=== PATIENT | female | born 1990 | race Caucasian/White ===

== ENCOUNTER → 2016-09-03 | Outpatient (REF) | payer OTHER | LOC: M SFHCCAPE 11:15 | PROVIDERS: ATTEND Physician Assistant | DX: J06.9 Acute upper respiratory infection, unspecified (principal) ==

== ENCOUNTER → 2016-10-23 | Outpatient (REF) | payer BC, OTHER ==
[2016-10-23 19:13] LABS: BASO % 0.7 % (0.0-1.0); EOS # 0.1 K/mm3 (0.0-0.50); EOS % 1.8 % (0.0-3.0); LARGE UNSTAINED CELL # 0.1 K/mm3 (0.0-0.4); LYMPH # 1.6 K/mm3 (1.5-6.5); LYMPH % 22.2 % (24.0-44.0); MEAN CORPUSCULAR HEMOGLOBIN 30.2 pg (27.0-33.0); MEAN CORPUSCULAR HGB CONC 32.6 g/dl (32.0-36.5); MEAN CORPUSCULAR VOLUME 92.5 fl (80.0-96.0); MONO # 0.4 K/mm3 (0.0-0.8); MONO % 5.2 % (0.0-5.0); NEUTROPHILS # 4.8 K/mm3 (1.8-7.7); NEUTROPHILS % 69.1 % (36.0-66.0); PLATELET COUNT, AUTOMATED 289 k/mm3 (150-450); RED CELL DISTRIBUTION WIDTH 11.3 % (11.5-14.5)
[2016-10-23 19:16] LABS: ALBUMIN 4.5 GM/DL (3.2-5.2); ALBUMIN/GLOBULIN RATIO 1.36 (1.00-1.93); ALKALINE PHOSPHATASE 67 U/L (45-117); ALT/SGPT 23 U/L (12-78); AMYLASE 82 U/L (25-115); ANION GAP 7 MEQ/L (8-16); AST/SGOT 20 U/L (15-37); BILIRUBIN,TOTAL 0.5 MG/DL (0.2-1.0); BLOOD UREA NITROGEN 13 MG/DL (7-18); CALCIUM LEVEL 9.5 MG/DL (8.5-10.1); CARBON DIOXIDE LEVEL 29 MEQ/L (21-32); CHLORIDE LEVEL 106 MEQ/L (98-107); CREATININE FOR GFR 0.81 MG/DL (0.55-1.02); GLOMERULAR FILTRATION RATE > 60.0 (>60); GLUCOSE, FASTING 104 MG/DL (70-105); POTASSIUM SERUM 4.4 MEQ/L (3.5-5.1); SODIUM LEVEL 142 MEQ/L (136-145); TOTAL PROTEIN 7.8 GM/DL (6.4-8.2)
== END ==
LOC: M LAB REF 16:34
PROVIDERS: ATTEND Physician Assistant
DX: R10.812 Left upper quadrant abdominal tenderness (principal); J02.9 Acute pharyngitis, unspecified; R50.9 Fever, unspecified

== ENCOUNTER → 2016-10-27 | Outpatient (REF) | payer OTHER ==
[2016-10-27 17:34] LABS: ALBUMIN/GLOBULIN RATIO 1.38 (1.00-1.93); ALKALINE PHOSPHATASE 62 U/L (45-117); ALT/SGPT 21 U/L (12-78); ANION GAP 5 MEQ/L (8-16); AST/SGOT 13 U/L (15-37); BILIRUBIN,TOTAL 0.3 MG/DL (0.2-1.0); BLOOD UREA NITROGEN 15 MG/DL (7-18); CALCIUM LEVEL 9.2 MG/DL (8.5-10.1); CARBON DIOXIDE LEVEL 30 MEQ/L (21-32); CHLORIDE LEVEL 104 MEQ/L (98-107); CREATININE FOR GFR 0.81 MG/DL (0.55-1.02); GLOMERULAR FILTRATION RATE > 60.0 (>60); GLUCOSE, FASTING 85 MG/DL (70-105); POTASSIUM SERUM 4.2 MEQ/L (3.5-5.1); SODIUM LEVEL 139 MEQ/L (136-145); TOTAL PROTEIN 6.9 GM/DL (6.4-8.2)
[2016-10-27 18:26] LABS: BASO # 0.1 K/mm3 (0.0-0.2); EOS # 0.3 K/mm3 (0.0-0.50); EOS % 4.3 % (0.0-3.0); LARGE UNSTAINED CELL # 0.1 K/mm3 (0.0-0.4); LARGE UNSTAINED CELL % 1.3 % (0.0-4.0); LYMPH # 2.3 K/mm3 (1.5-6.5); MEAN CORPUSCULAR HEMOGLOBIN 30.4 pg (27.0-33.0); MEAN CORPUSCULAR HGB CONC 33.4 g/dl (32.0-36.5); MEAN CORPUSCULAR VOLUME 91.3 fl (80.0-96.0); MONO # 0.5 K/mm3 (0.0-0.8); MONO % 7.2 % (0.0-5.0); NEUTROPHILS # 3.9 K/mm3 (1.8-7.7); NEUTROPHILS % 55.2 % (36.0-66.0); PLATELET COUNT, AUTOMATED 274 k/mm3 (150-450); RED CELL DISTRIBUTION WIDTH 11.1 % (11.5-14.5); WHITE BLOOD COUNT 7.1 K/mm3 (4.0-10.0)
== END ==
LOC: M SFHCCAPE 11:25
PROVIDERS: ATTEND Physician Assistant
DX: B27.90 Infectious mononucleosis, unspecified without complication (principal)

== ENCOUNTER → 2016-12-10 | Outpatient (CLI) | payer OTHER ==
--- NOTE | 2016-12-10 09:08 | REP ---
Clinical: Left upper quadrant pain with history of mononucleosis. Technique: Real time alvarez scale ultrasound examination of the left upper quadrant using curved array transducer. Findings: The spleen is normal in contour, size, and echogenicity without focal splenic lesion identified. No perisplenic fluid collections are appreciated. The left kidney is normal in reniform shape and echogenicity without hydronephrosis, nephrolithiasis, cystic or mass lesion. No ascites in the visualized left upper quadrant. Spleen measures 9.1 x 3.4 x 8.9 cm. Left kidney measures 11.3 x 4.4 x 4.5 cm. Impression: Normal left upper quadrant ultrasound. Signed by Mri Alfaro MD 12/10/2016 09:00 A
== END ==
LOC: M RAD 06:57
PROVIDERS: ATTEND Physician Assistant
DX: B27.90 Infectious mononucleosis, unspecified without complication (principal); R10.12 Left upper quadrant pain

== ENCOUNTER → 2017-05-06 | Outpatient (REF) | payer OTHER | LOC: M SFHCWAGY 16:00 | PROVIDERS: ATTEND Nurse Practitioner Women's Health | DX: Z12.4 Encounter for screening for malignant neoplasm of cervix (principal) ==

== ENCOUNTER → 2017-08-12 | Outpatient (REF) | payer OTHER | LOC: M SFHCCLAY 12:41 | DX: R50.9 Fever, unspecified (principal) | CPT/HCPCS: 87070 ==

== ENCOUNTER → 2017-08-24 | Outpatient (CLI) | payer OTHER ==
[2017-08-24 20:08] LABS: BASO # 0.1 10^3/uL (0.0-0.2); BASO % 0.6 % (0.0-1.0); EOS # 0.1 10^3/uL (0.0-0.50); EOS % 0.8 % (0.0-3.0); HEMATOCRIT 37.4 % (36.0-47.0); HEMOGLOBIN 12.7 g/dl (12.0-16.0); IMMATURE GRANULOCYTE % 0.2 % (0-0); LYMPH # 3.3 10^3/uL (1.5-6.5); LYMPH % 25.7 % (24.0-44.0); MEAN CORPUSCULAR HEMOGLOBIN 29.5 pg (27.0-33.0); MONO # 0.8 10^3/uL (0.0-0.8); MONO % 6.3 % (0.0-5.0); NEUTROPHILS # 8.4 10^3/uL (1.8-7.7); NEUTROPHILS % 66.4 % (36.0-66.0); PLATELET COUNT, AUTOMATED 310 10^3/uL (150-450); RED CELL DISTRIBUTION WIDTH 11.7 % (11.5-14.5); WHITE BLOOD COUNT 12.7 10^3/uL (4.0-10.0)
[2017-08-24 23:41] LABS: CHLAMYDIA DNA AMPLIFICATION NEGATIVE (NEGATIVE); GC DNA AMPLIFICATION NEGATIVE (NEGATIVE)
[2017-08-25 11:08] LABS: RUBELLA IgG QUALITATIVE IMMUNE (IMMUNE)
[2017-08-25 11:12] LABS: HBsAg Prenatal NEGATIVE (NEGATIVE)
[2017-08-25 11:37] LABS: HIV 1&2 SCREEN CENTAUR NEGATIVE (NEGATIVE)
== END ==
LOC: M SMT 15:43
DX: Z3A.01 Less than 8 weeks gestation of pregnancy (principal)

== ENCOUNTER → 2017-09-15 | Outpatient (REF) | payer OTHER | LOC: M LAB REF 16:55 | DX: Z34.01 Encounter for supervision of normal first pregnancy, first trimester (principal) ==

== ENCOUNTER → 2017-09-17 | Outpatient (CLI) | payer OTHER | LOC: M SMT 11:44 | DX: Z36.8A Encounter for antenatal screening for other genetic defects (principal) | CPT/HCPCS: 36415 ==

== ENCOUNTER → 2017-10-20 | Outpatient (CLI) | payer OTHER | LOC: M SMT 15:38 | DX: Z34.82 Encounter for supervision of other normal pregnancy, second trimester (principal); Z3A.00 Weeks of gestation of pregnancy not specified | CPT/HCPCS: 36415 ==

== ENCOUNTER → 2017-11-12 | Outpatient (CLI) | payer OTHER | LOC: M SMT 13:36 | DX: Z34.82 Encounter for supervision of other normal pregnancy, second trimester (principal) ==

== ENCOUNTER → 2017-12-13 | Outpatient (CLI) | payer OTHER ==
[2017-12-13 17:25] LABS: BASO # 0.1 10^3/uL (0.0-0.2); BASO % 0.4 % (0.0-1.0); EOS # 0.1 10^3/uL (0.0-0.50); EOS % 0.6 % (0.0-3.0); HEMATOCRIT 36.7 % (36.0-47.0); HEMOGLOBIN 12.2 g/dl (12.0-15.5); IMMATURE GRANULOCYTE % 0.8 % (0-3.0); LYMPH # 2.3 10^3/uL (1.5-6.5); LYMPH % 15.2 % (24.0-44.0); MEAN CORPUSCULAR HEMOGLOBIN 31.1 pg (27.0-33.0); MEAN CORPUSCULAR HGB CONC 33.2 g/dl (32.0-36.5); MEAN CORPUSCULAR VOLUME 93.6 fl (80.0-96.0); MONO # 1.1 10^3/uL (0.0-0.8); MONO % 7.6 % (0.0-5.0); NEUTROPHILS # 11.2 10^3/uL (1.8-7.7); NEUTROPHILS % 75.4 % (36.0-66.0); PLATELET COUNT, AUTOMATED 290 10^3/uL (150-450); RED BLOOD COUNT 3.92 10^6/uL (4.00-5.40); RED CELL DISTRIBUTION WIDTH 12.3 % (11.5-14.5); WHITE BLOOD COUNT 14.9 10^3/uL (4.0-10.0)
[2017-12-13 17:49] LABS: GLUCOSE CHALLENGE TEST 1 HOUR 91 MG/DL (LESS THAN 140)
== END ==
LOC: M SMT 13:57
DX: Z34.82 Encounter for supervision of other normal pregnancy, second trimester (principal)

== ENCOUNTER → 2018-03-04 | Outpatient (REF) | payer OTHER | LOC: M LAB REF 17:24 | DX: Z34.83 Encounter for supervision of other normal pregnancy, third trimester (principal) ==

== ENCOUNTER → 2018-03-09 | Outpatient (REF) | payer OTHER | LOC: M LAB REF 13:01 | DX: Z34.83 Encounter for supervision of other normal pregnancy, third trimester (principal) ==

== ENCOUNTER 2018-03-29 12:56 | Inpatient (IN) | payer OTHER ==
[2018-03-29 13:55] LABS: HEMATOCRIT 36.2 % (36.0-47.0); HEMOGLOBIN 12.1 g/dl (12.0-15.5); MEAN CORPUSCULAR HEMOGLOBIN 27.9 pg (27.0-33.0); MEAN CORPUSCULAR HGB CONC 33.4 g/dl (32.0-36.5); MEAN CORPUSCULAR VOLUME 83.4 fl (80.0-96.0); PLATELET COUNT, AUTOMATED 395 10^3/uL (150-450); RED BLOOD COUNT 4.34 10^6/uL (4.00-5.40); RED CELL DISTRIBUTION WIDTH 13.8 % (11.5-14.5); WHITE BLOOD COUNT 13.3 10^3/uL (4.0-10.0)
[2018-03-29] MEDS: miSOPROStol 50 MCG 1/2 TAB (S0191) PO ×2 (14:07→18:00)
[2018-03-29 15:46] LABS: ALT/SGPT 19 U/L (12-78); AST/SGOT 19 U/L (7-37); BILIRUBIN,TOTAL 0.3 MG/DL (0.2-1.0); CREATININE FOR GFR 0.63 MG/DL (0.55-1.30); GLOMERULAR FILTRATION RATE > 60.0 (>60); LDH LACTATE DEHYDROGENASE 183 U/L (84-246); URIC ACID 4.9 MG/DL (2.6-6.0)
[2018-03-29 16:13] LABS: TOTAL PROTEIN,RANDOM URINE 25.4 MG/DL (0.0-12.0)
[2018-03-29 16:13] LABS: CREATININE,RANDOM URINE 88.4 MG/DL
[2018-03-29] MEDS: LACTATED RINGER'S 1000 ML IV (16:59)
[2018-03-29] MEDS: LR 1,000 ML IV (23:34)
[2018-03-29] MEDS: OXYTOCIN DRIP 30 UNITS in APPROPRIATE DILUENT 1 EA IV (23:57)
[2018-03-30] MEDS ORDERED: FENTANYL 2MCG/ML ROPIVACAINE 0.2% IN 0.9% NACL 200ML IVBAG As Ordered (02:40)
[2018-03-30] MEDS ORDERED: EPIDURAL COMMENT XX (03:35)
[2018-03-30] MEDS ORDERED: REFRIGERATOR IV KEYS XX (03:35)
[2018-03-30] MEDS ORDERED: ePHEDrine SULFATE 25 MG/5 ML(5MG/ML) SYRINGE IV (03:35)
[2018-03-30] MEDS ORDERED: FENTANYL/ROPIVACAINE/NACL BAG 200 ML EPIDURAL (03:35)
[2018-03-30] MEDS ORDERED: EPIDURAL/PCA KEYS XX (03:35)
[2018-03-30] MEDS ORDERED: LACTATED RINGER'S 1000 ML IV (03:35)
[2018-03-30] MEDS ORDERED: NALOXONE INJ 0.4 MG/1 ML VIAL (J2310) IV ×3 (03:35→18:45)
[2018-03-30] MEDS ORDERED: diphenhydrAMINE INJ 50MG/ML VIAL (J1200) IV (03:35)
[2018-03-30] MEDS: LR 1,000 ML IV ×3 (08:09→20:01)
[2018-03-30] MEDS ORDERED: ONDANSETRON 4MG/2ML VIAL (J2405) ×2 (11:28→17:46)
[2018-03-30] MEDS: ONDANSETRON 4MG/2ML VIAL (J2405) IV (11:30)
[2018-03-30] MEDS: BICITRA 30ML SOLN UDC PO (17:40)
[2018-03-30] MEDS ORDERED: OXYTOCIN INJ 10 UNITS/ML VIAL (J2590) ×3 (17:46→18:54)
[2018-03-30] MEDS ORDERED: dexameTHASONE 4 MG/ML 1ML VIAL (J1100) (17:46)
[2018-03-30] MEDS ORDERED: KETOROLAC 60 MG/2 ML VIAL (J1885) (17:46)
[2018-03-30] MEDS ORDERED: LIDOCAINE PRES-FREE 2% 10ML AMP ×2 (17:51)
[2018-03-30] MEDS ORDERED: fentaNYL 100 MCG/2 ML INJECTION (J3010) ×2 (18:28→18:55)
[2018-03-30] MEDS ORDERED: MORPHINE PRES-FREE INJ 10 MG/10 ML VIAL (J2274) (18:43)
[2018-03-30] MEDS ORDERED: PROPOFOL 200 MG/20 ML VIAL (18:43)
[2018-03-30] MEDS ORDERED: ONDANSETRON 4MG/2ML VIAL (J2405) IV ×4 (18:45→21:15)
[2018-03-30] MEDS ORDERED: NALBUPHINE HCL 10 MG/ML AMP (J2300) IV ×3 (18:45→21:15)
[2018-03-30] MEDS ORDERED: METOCLOPRAMIDE INJ 10MG/2ML VIAL (J2765) IV (18:45)
[2018-03-30] MEDS ORDERED: PERCOCET 5MG/325MG TAB PO ×2 (19:15→21:15)
[2018-03-30] MEDS ORDERED: HYDROMORPHONE HCL 0.5 MG/ 0.5 ML SYRINGE (J1170 PER 1) IV ×2 (19:15→21:15)
[2018-03-30] MEDS ORDERED: MEPERIDINE INJ 25 MG/ML VIAL (J2175) IV ×2 (19:15→21:15)
[2018-03-30] MEDS ORDERED: fentaNYL 100 MCG/2 ML INJECTION (J3010) IV ×2 (19:15→21:15)
[2018-03-30] MEDS: OXYTOCIN DRIP 30 UNITS in APPROPRIATE DILUENT 1 EA IV (19:35)
[2018-03-30] MEDS: METHYLERGONOVINE MALEATE 0.2 MG/ML VIAL (J2210) IM (19:49)
[2018-03-30] MEDS ORDERED: miSOPROStol 200 MCG TAB (S0191) ×2 (19:50→19:52)
[2018-03-30] MEDS: miSOPROStol 200 MCG TAB (S0191) PR (19:51)
[2018-03-30] MEDS ORDERED: UNASYN 3 GM VIAL (22:19)
[2018-03-30] MEDS: AMPICILLIN SOD/SULBACTAM SOD 3 GM in D5W MINI-BAG PLUS 100 ML IV (22:39)
[2018-03-30] MEDS: PERCOCET 5MG/325MG TAB PO (23:10)
[2018-03-31] MEDS: PERCOCET 5MG/325MG TAB PO ×5 (02:40→18:53)
[2018-03-31] MEDS: AMPICILLIN SOD/SULBACTAM SOD 3 GM in D5W MINI-BAG PLUS 100 ML IV ×3 (02:40→14:57)
[2018-03-31] MEDS: LR 1,000 ML IV ×2 (02:40→11:13)
[2018-03-31 06:50] LABS: HEMATOCRIT 24.4 % (36.0-47.0); MEAN CORPUSCULAR HEMOGLOBIN 27.6 pg (27.0-33.0); MEAN CORPUSCULAR HGB CONC 32.8 g/dl (32.0-36.5); MEAN CORPUSCULAR VOLUME 84.1 fl (80.0-96.0); PLATELET COUNT, AUTOMATED 251 10^3/uL (150-450); RED CELL DISTRIBUTION WIDTH 13.9 % (11.5-14.5); WHITE BLOOD COUNT 26.5 10^3/uL (4.0-10.0)
[2018-03-31] MEDS: PRENATAL VITAMINS CHEWABLE TABLET PO (09:57)
[2018-03-31] MEDS: ENOXAPARIN 40 MG/0.4 ML SYRINGE (J1650) SC (09:57)
[2018-03-31] MEDS: DOCUSATE SODIUM 100 MG CAP PO (18:52)
[2018-03-31] MEDS: MOM 30ML SUSPENSION UDC PO (18:52)
[2018-04-01] MEDS: PERCOCET 5MG/325MG TAB PO ×6 (00:30→22:40)
[2018-04-01] MEDS: RHOGAM 300 MCG (1500 IU) INJ (J2790) IM (07:14)
[2018-04-01] MEDS: MEASLES,MUMPS,RUBELLA VACCINE INJ (MMR-II) (90707) SC (07:14)
[2018-04-01] MEDS: ENOXAPARIN 40 MG/0.4 ML SYRINGE (J1650) SC (09:32)
[2018-04-01] MEDS: PRENATAL VITAMINS CHEWABLE TABLET PO (09:32)
[2018-04-01] MEDS ORDERED: INFLUENZA QUADRIVALENT PF VACCINE 0.5ML SYRINGE (90686) IM (16:00)
[2018-04-01] MEDS: DOCUSATE SODIUM 100 MG CAP PO (22:40)
[2018-04-02] MEDS: PERCOCET 5MG/325MG TAB PO ×3 (02:28→11:24)
[2018-04-02 07:14] LABS: HEMATOCRIT 24.5 % (36.0-47.0); HEMOGLOBIN 7.8 g/dl (12.0-15.5); MEAN CORPUSCULAR HEMOGLOBIN 27.8 pg (27.0-33.0); MEAN CORPUSCULAR HGB CONC 31.8 g/dl (32.0-36.5); MEAN CORPUSCULAR VOLUME 87.2 fl (80.0-96.0); PLATELET COUNT, AUTOMATED 304 10^3/uL (150-450); RED BLOOD COUNT 2.81 10^6/uL (4.00-5.40); RED CELL DISTRIBUTION WIDTH 14.7 % (11.5-14.5); WHITE BLOOD COUNT 16.7 10^3/uL (4.0-10.0)
[2018-04-02] MEDS: PRENATAL VITAMINS CHEWABLE TABLET PO (09:12)
[2018-04-02] MEDS: ENOXAPARIN 40 MG/0.4 ML SYRINGE (J1650) SC (09:12)
== END 2018-04-02 11:40 | disposition home or self-care (01) | DRG 766 ==
LOC: M LDI 12:56 → M OBS 03-30 21:30
PROC: 10D00Z1 Extraction of Products of Conception, Low, Open Approach (ICD-10-PCS; principal; 2018-03-29 17:49)
PROC: 3E033VJ Introduction of Other Hormone into Peripheral Vein, Percutaneous Approach (ICD-10-PCS; 2018-03-29 17:49)
DX: O13.4 Gestational [pregnancy-induced] hypertension without significant proteinuria, complicating childbirth (principal); Z37.0 Single live birth; Z3A.39 39 weeks gestation of pregnancy; O62.0 Primary inadequate contractions

== ENCOUNTER → 2018-09-20 | Outpatient (CLI) | payer OTHER ==
[~2018-09-20] MED LIST: ENOX40IN3 SC; PERCOCET PO; PRENTAB7 PO
[2018-09-20 18:34] LABS: BASO # 0.1 10^3/uL (0.0-0.2); BASO % 0.5 % (0.0-1.0); EOS # 0.1 10^3/uL (0.0-0.50); EOS % 0.6 % (0.0-3.0); HEMATOCRIT 39.5 % (36.0-47.0); HEMOGLOBIN 12.6 g/dl (12.0-15.5); LYMPH # 2.6 10^3/uL (1.5-6.5); LYMPH % 17.6 % (24.0-44.0); MEAN CORPUSCULAR HEMOGLOBIN 25.8 pg (27.0-33.0); MEAN CORPUSCULAR HGB CONC 31.9 g/dl (32.0-36.5); MEAN CORPUSCULAR VOLUME 80.8 fl (80.0-96.0); MONO # 1.2 10^3/uL (0.0-0.8); MONO % 7.9 % (0.0-5.0); NEUTROPHILS # 10.9 10^3/uL (1.8-7.7); NEUTROPHILS % 72.9 % (36.0-66.0); PLATELET COUNT, AUTOMATED 391 10^3/uL (150-450); RED BLOOD COUNT 4.89 10^6/uL (4.00-5.40); WHITE BLOOD COUNT 14.9 10^3/uL (4.0-10.0)
[2018-09-20 20:02] LABS: CHLAMYDIA DNA AMPLIFICATION NEGATIVE (NEGATIVE); GC DNA AMPLIFICATION NEGATIVE (NEGATIVE)
[2018-09-21 10:14] LABS: HEPATITIS C VIRUS ABY INDEX < 0.0 INDEX (<0.8); HIV 1&2 SCREEN CENTAUR NEGATIVE (NEGATIVE); RUBELLA IgG QUALITATIVE IMMUNE (IMMUNE)
== END ==
LOC: M SMT 13:30
PROVIDERS: ATTEND Specialist
DX: Z36.89 Encounter for other specified antenatal screening (principal)

== ENCOUNTER → 2018-10-20 | Outpatient (CLI) | payer OTHER | LOC: M SMT 14:15 | PROVIDERS: ATTEND Specialist | DX: Z82.79 Family history of other congenital malformations, deformations and chromosomal abnormalities (principal) ==

== ENCOUNTER → 2018-11-28 | Outpatient (CLI) | payer OTHER ==
--- NOTE | 2018-11-29 03:48 | REP ---
Clinical: Anatomical evaluation. Comparison: None . Findings: Examination demonstrates a single live intrauterine in variable presentation. motion is identified by technologist. Placenta is noted fundal and grade grade zero without evidence for placenta previa or abruption. Amniotic fluid volume is normal. Cervix measures 3.8 cm in length and appears closed. No evidence for nuchal cord. Gestational age by LMP 19 weeks 3 days with NELLA 04/21/2019 . Gestational age by current measurements 18 weeks 6-day with NELLA 04/25/2019 . FHR equals 157 beats per minute. BPD 4.2 cm 18 weeks 4 days HC 15.4 cm 18 weeks 2 days AC 12.8 cm 18 weeks 3 days FL 2.8 cm 18 weeks 5 days HL 3.1 cm 20 weeks 2 day HC/AC ratio 1.20 Estimated weight 243 grams ( 16th percentile). Anatomical assessment demonstrates normal structures including cranium, cavum, cerebellum/posterior fossa, facial features, lungs, four-chamber heart/ventricular outflow tracts, diaphragm, stomach, cord insertion/three-vessel cord, kidneys/bladder, spine, and extremities. Small left choroid plexus cyst. Impression: 1. Single live intrauterine in variable presentation demonstrating appropriate interval growth. 2. Small left choroid plexus cyst. Anatomical assessment is otherwise complete and normal. Electronically Signed by Mir Alfaro MD 11/29/2018 03:40 A
== END ==
LOC: M RAD 15:59
PROVIDERS: ATTEND Specialist
DX: Z34.82 Encounter for supervision of other normal pregnancy, second trimester (principal); Z36.89 Encounter for other specified antenatal screening; Z3A.19 19 weeks gestation of pregnancy

== ENCOUNTER 2019-01-08 10:07 | Outpatient (CLI) | payer OTHER ==
[~2019-01-08] VITALS: Ht 157.5 cm; Wt 70.3 kg
[2019-01-08 10:23] VITALS: BP 130/79
[2019-01-08] MEDS ORDERED: LR 1,000 ML IV SCH (11:08)
[2019-01-08] MEDS ORDERED: LACTATED RINGER'S 1000 ML IV STA (11:08)
[2019-01-08] MEDS ORDERED: PROMETHAZINE INJ 25 MG/ML VIAL (J2550) IV ONE (11:30)
[2019-01-08 11:31] LABS: HEMATOCRIT 39.2 % (36.0-47.0); MEAN CORPUSCULAR HEMOGLOBIN 29.1 pg (27.0-33.0); MEAN CORPUSCULAR HGB CONC 33.2 g/dl (32.0-36.5); MEAN CORPUSCULAR VOLUME 87.7 fl (80.0-96.0); PLATELET COUNT, AUTOMATED 304 10^3/uL (150-450); RED BLOOD COUNT 4.47 10^6/uL (4.00-5.40); WHITE BLOOD COUNT 12.2 10^3/uL (4.0-10.0)
[2019-01-08] MEDS ORDERED: MVI -ADULT INJECTION 10 ML VIAL IV ONE (12:00)
[2019-01-08 12:03] LABS: ALBUMIN 2.7 GM/DL (3.2-5.2); ALT/SGPT 18 U/L (12-78); BILIRUBIN,TOTAL 0.4 MG/DL (0.2-1.0); BLOOD UREA NITROGEN 9 MG/DL (7-18); CALCIUM LEVEL 8.2 MG/DL (8.5-10.1); CARBON DIOXIDE LEVEL 26 MEQ/L (21-32); CHLORIDE LEVEL 106 MEQ/L (98-107); CREATININE FOR GFR 0.51 MG/DL (0.55-1.30); GLOMERULAR FILTRATION RATE > 60.0 (>60); GLUCOSE, FASTING 89 MG/DL (70-100); POTASSIUM SERUM 3.6 MEQ/L (3.5-5.1); SODIUM LEVEL 139 MEQ/L (136-145); TOTAL PROTEIN 6.2 GM/DL (6.4-8.2)
--- NOTE | 2019-01-08 17:27 | HPE ---
DATE OF ADMISSION: 01/08/2019 28-year-old, 2, para 1 female at 25 and 1/7 weeks gestation by last menstrual period and consistent with 8 week ultrasound, estimated date of confinement (EDC) of 04/20/2019, who presented with nausea and vomiting since the day prior to the presentation to the hospital. She has been unable to tolerate oral intake at all. Her daughter is ill with the same symptoms. She denies fevers. She denies diarrhea. OBSTETRICAL HISTORY: 1. June 2014, 40 week section, 8 pounds 7 ounce female. MEDICAL HISTORY: Noncontributory. SURGICAL HISTORY: 1. section times one. 2. Ankle surgery times four. ALLERGIES: None. SOCIAL HISTORY: The patient is . She lives in [place]. She denies cigarettes, alcohol or drug use. FAMILY HISTORY: Noncontributory. PHYSICAL EXAMINATION: Blood pressure 124/74, pulse 84, afebrile. She appears fatigued. Head and neck exam normal. Lungs clear. Heart with regular rate and rhythm. Abdomen nontender, gravid. heart tones category 1. Sterile vaginal examination deferred. No contractions. Extremities are nontender. ASSESSMENT: 28-year-old 2, para 1 female at 25 and 1/7 weeks gestation who presents with viral gastroenteritis. PLAN: Administer IV fluids, as well as antiemetics to improve hydration and help resolve symptoms. Also check electrolytes and basic laboratories.
== END 2019-01-08 14:30 | disposition home or self-care (01) ==
LOC: M LDO 10:07
PROVIDERS: ATTEND Specialist
DX: O21.2 Late vomiting of pregnancy (principal); O26.893 Other specified pregnancy related conditions, third trimester; O98.519 Other viral diseases complicating pregnancy, unspecified trimester; Z3A.25 25 weeks gestation of pregnancy
CPT/HCPCS: 80053; 85027; G0378; G0463

== ENCOUNTER → 2019-01-18 | Outpatient (CLI) | payer OTHER ==
[2019-01-18 13:33] LABS: BASO # 0.1 10^3/uL (0.0-0.2); BASO % 0.5 % (0.0-1.0); EOS # 0.1 10^3/uL (0.0-0.50); EOS % 0.5 % (0.0-3.0); HEMATOCRIT 39.6 % (36.0-47.0); HEMOGLOBIN 12.8 g/dl (12.0-15.5); LYMPH # 2.1 10^3/uL (1.5-6.5); LYMPH % 16.7 % (24.0-44.0); MEAN CORPUSCULAR HEMOGLOBIN 29.2 pg (27.0-33.0); MEAN CORPUSCULAR HGB CONC 32.3 g/dl (32.0-36.5); MEAN CORPUSCULAR VOLUME 90.4 fl (80.0-96.0); MONO # 0.8 10^3/uL (0.0-0.8); NEUTROPHILS # 9.7 10^3/uL (1.8-7.7); NEUTROPHILS % 75.8 % (36.0-66.0); PLATELET COUNT, AUTOMATED 349 10^3/uL (150-450); RED BLOOD COUNT 4.38 10^6/uL (4.00-5.40); WHITE BLOOD COUNT 12.8 10^3/uL (4.0-10.0)
== END ==
LOC: M SMT 10:31
PROVIDERS: ATTEND Specialist
DX: Z34.82 Encounter for supervision of other normal pregnancy, second trimester (principal); Z3A.00 Weeks of gestation of pregnancy not specified

== ENCOUNTER → 2019-03-21 | Outpatient (REF) | payer OTHER | LOC: M LAB REF 16:46 | PROVIDERS: ATTEND Specialist | DX: Z34.83 Encounter for supervision of other normal pregnancy, third trimester (principal) ==

== ENCOUNTER 2019-04-13 05:21 | Inpatient (IN) | payer OTHER ==
[2019-04-13] VITALS (7 sets, daily range): BP systolic 101–116; BP diastolic 56–71
[~2019-04-13] VITALS: Ht 160 cm; Wt 77.0 kg
[2019-04-13] MEDS ORDERED: LR 800 ML IV ONE (05:45)
[2019-04-13] MEDS ORDERED: BICITRA 30ML SOLN UDC PO ONE (05:45)
[2019-04-13 06:09] LABS: HEMATOCRIT 38.2 % (36.0-47.0); HEMOGLOBIN 12.7 g/dl (12.0-15.5); MEAN CORPUSCULAR HEMOGLOBIN 28.6 pg (27.0-33.0); MEAN CORPUSCULAR HGB CONC 33.2 g/dl (32.0-36.5); PLATELET COUNT, AUTOMATED 316 10^3/uL (150-450); RED BLOOD COUNT 4.44 10^6/uL (4.00-5.40); WHITE BLOOD COUNT 15.1 10^3/uL (4.0-10.0)
[2019-04-13] MEDS ORDERED: LR 1,000 ML IV SCH (06:30)
[2019-04-13] MEDS ORDERED: OXYTOCIN INJ 10 UNITS/ML VIAL (J2590) As Ordered ONE (07:23)
[2019-04-13] MEDS ORDERED: fentaNYL 100 MCG/2 ML INJECTION (J3010) As Ordered ONE (07:25)
[2019-04-13] MEDS ORDERED: MORPHINE PRES-FREE INJ 10 MG/10 ML VIAL (J2274) As Ordered ONE (07:26)
[2019-04-13] MEDS ORDERED: dexameTHASONE 4 MG/ML 1ML VIAL (J1100) As Ordered ONE (07:29)
[2019-04-13] MEDS ORDERED: KETOROLAC 60 MG/2 ML VIAL (J1885) As Ordered ONE (07:29)
[2019-04-13] MEDS ORDERED: ONDANSETRON 4MG/2ML VIAL (J2405) As Ordered ONE (07:29)
[2019-04-13] MEDS ORDERED: METOCLOPRAMIDE INJ 10MG/2ML VIAL (J2765) IV PRN (07:39)
[2019-04-13] MEDS ORDERED: NALOXONE INJ 0.4 MG/1 ML VIAL (J2310) IV PRN ×2 (07:39)
[2019-04-13] MEDS ORDERED: NALBUPHINE HCL 10 MG/ML AMP (J2300) IV PRN (07:39)
[2019-04-13] MEDS ORDERED: diphenhydrAMINE INJ 50MG/ML VIAL (J1200) IV PRN (07:39)
[2019-04-13] MEDS ORDERED: ONDANSETRON 4MG/2ML VIAL (J2405) IV PRN ×3 (07:39→09:00)
[2019-04-13] MEDS ORDERED: PHENYLephrine HCL 500 MCG/5 ML (100MCG/ML) SYRINGE (J2370) As Ordered ONE (07:49)
[2019-04-13] MEDS ORDERED: ePHEDrine SULFATE 25 MG/5 ML(5MG/ML) SYRINGE As Ordered ONE (07:49)
[2019-04-13] MEDS ORDERED: OXYTOCIN DRIP 30 UNITS in APPROPRIATE DILUENT 1 EA IV SCH ×2 (08:37→10:18)
[2019-04-13] MEDS ORDERED: METHYLERGONOVINE MALEATE 0.2 MG TAB PO PRN (08:45)
[2019-04-13] MEDS ORDERED: PERCOCET 5MG/325MG TAB PO PRN (08:45)
[2019-04-13] MEDS ORDERED: MEASLES,MUMPS,RUBELLA VACCINE INJ (MMR-II) (90707) SC SCH (08:45)
[2019-04-13] MEDS ORDERED: RHOGAM 300 MCG (1500 IU) INJ (J2790) IM SCH (08:45)
[2019-04-13] MEDS ORDERED: OXYTOCIN 30 UNITS IN 0.9% NaCl 500ML IV BAG (J2590) As Ordered ONE (08:58)
[2019-04-13] MEDS ORDERED: fentaNYL 100 MCG/2 ML INJECTION (J3010) IV PRN (09:00)
[2019-04-13] MEDS ORDERED: oxyCODONE 5MG TAB PO PRN (09:00)
[2019-04-13] MEDS: PRENATAL VITAMINS CHEWABLE TABLET PO SCH (09:00)
[2019-04-13] MEDS: PERCOCET 5MG/325MG TAB PO PRN ×2 (11:36→18:53)
--- NOTE | 2019-04-13 15:19 | RO ---
DATE OF PROCEDURE: 04/13/2019 PREPROCEDURE DIAGNOSIS: 39 weeks, prior section times one. POSTPROCEDURE DIAGNOSIS: 39 weeks, prior section times one. PROCEDURE: Repeat lower transverse section. SURGEON: Dr. Lj Hinojosa. RESIDENTIAL TEAM LEADER: Nathalie Escalante MD, Kayley Masters DO ANESTHESIA: Spinal. ESTIMATED BLOOD LOSS: 600 mL. URINE OUTPUT: 100 mL. IV FLUIDS: 1900 mL of lactated Ringers (LR). FINDINGS: 7 [id number] female . Apgars 8 and 9. Normal uterus, fallopian tubes and ovaries. DESCRIPTION OF PROCEDURE: Patient taken to the operating room where spinal anesthesia was induced. She was prepped and draped in a sterile fashion in the supine position. A Min catheter was placed. A Pfannenstiel skin incision made with a scalpel and carried through the fascia. The fascia was nicked and extended. The fascia was dissected off the rectus muscles. The peritoneal cavity was entered. A bladder flap was created. A curvilinear incision was made in the lower uterine segment until bulging membranes were noted. This was extended manually. Membranes were ruptured with clear fluid. The infant was delivered in the vertex position without difficulty. The cord was doubly clamped and cut. The was handed off to the awaiting nurses. The placenta was expressed. The uterus cleared of clots and debris. The uterine incision was closed with #0 Vicryl in a running locked fashion. A second imbricating layer of #0 Vicryl was placed. The peritoneum was closed with #2-0 Vicryl in a running fashion. The fascia was closed with #0 Vicryl in a running fashion. Deep layer was irrigated and closed with #2-0 chromic. The skin was closed with #4-0 Monocryl subcuticular sutures. Sponge, instrument and needle counts were correct. Nathalie Escalante MD assisted throughout the procedure. He helped create all layers of the incision. He helped perform the hysterotomy and deliver the fetus and closure of all subsequent layers.
[2019-04-13] MEDS: KETOROLAC 30 MG/ML VIAL (J1885) IV SCH ×2 (16:01→19:53)
[2019-04-14] MEDS: KETOROLAC 30 MG/ML VIAL (J1885) IV SCH (01:56)
[2019-04-14 02:00] VITALS: BP 118/84
[2019-04-14] MEDS: PERCOCET 5MG/325MG TAB PO PRN ×5 (03:44→23:31)
[2019-04-14 06:00] VITALS: BP 101/69
[2019-04-14 06:50] LABS: HEMATOCRIT 30.9 % (36.0-47.0); MEAN CORPUSCULAR HEMOGLOBIN 29.1 pg (27.0-33.0); PLATELET COUNT, AUTOMATED 276 10^3/uL (150-450); RED BLOOD COUNT 3.51 10^6/uL (4.00-5.40); WHITE BLOOD COUNT 19.1 10^3/uL (4.0-10.0)
[2019-04-14 06:55] LABS: HEMOGLOBIN 10.2 g/dl (12.0-15.5)
[2019-04-14] MEDS ORDERED: INFLUENZA QUADRIVALENT PF VACCINE 0.5ML SYRINGE (90686) IM ONE (09:00)
[2019-04-14] MEDS ORDERED: OXYC1TAB23 PO (09:54)
[2019-04-14] MEDS: IBUPROFEN 800 MG TAB PO SCH ×2 (09:58→17:57)
[2019-04-14] MEDS: PRENATAL VITAMINS CHEWABLE TABLET PO SCH (09:58)
[2019-04-14 10:01] VITALS: BP 122/67
--- NOTE | 2019-04-14 11:32 | IPNPDOC ---
Text Note Date of Service The patient was seen on 04/14/19. NOTE Postop Day 1 S/p rLTCS; uncomplicated S: pain well controlled, lochia and bleeding decreasing, voiding spontaneously, ambulating without assistance, tolerating regular diet. Breast feeding. O: vitals stable Heart: RRR, no murmurs Lungs: CTA BL Abd: Fundus firm at U Ext: no edema, nontender, negative Stacey's bilaterally A/P: 28 yo G2 now P2. /postop day 1 s/p rLTCS. Hemodynamically stable, afebrile, good pain control. Recovering well. -Routine postoperative care and advancement. -Anticipate discharge tomorrow VS,Fishbone, I+O VS, Fishbone, I+O Laboratory Tests 04/14/19 06:34 Red Blood Count 3.51 L, Mean Corpuscular Volume 88.0, Mean Corpuscular Hemoglobin 29.1, Mean Corpuscular Hemoglobin Concent 33.0, Red Cell Distribution Width 13.3 Vital Signs Date Time Temp Pulse Resp B/P (MAP) Pulse Ox O2 Delivery O2 Flow Rate FiO2 04/14/19 10:01 98.7 85 18 122/67 (85) 98 I&O- Last 24 Hours up to 6 AM 04/14/19 06:00 Intake Total 1050 ml Output Total 1725 ml Balance -675 ml GME ATTESTATION GME ATTESTATION My faculty preceptor for this patient encounter was physically present during the encounter and was fully available. All aspects of the patient interview, examination, medical decision making process, and medical care plan development were reviewed and approved by the faculty preceptor. The faculty preceptor is aware and concurs with the plan as stated in the body of this note and will attest to such by his/her cosignature. LORE OLIVAREZ DO Apr 14, 2019 11:32
[2019-04-14 14:07] VITALS: BP 111/55
[2019-04-14 19:20] VITALS: BP 109/57
[2019-04-14] MEDS: DOCUSATE SODIUM 100 MG CAP PO PRN (19:39)
[2019-04-14 22:00] VITALS: BP 121/74
[2019-04-15 02:00] VITALS: BP 120/67
[2019-04-15] MEDS: IBUPROFEN 800 MG TAB PO SCH ×3 (02:18→17:49)
[2019-04-15] MEDS: PERCOCET 5MG/325MG TAB PO PRN ×5 (05:36→23:31)
[2019-04-15 06:00] VITALS: BP 108/56
--- NOTE | 2019-04-15 06:30 | IPNPDOC ---
Text Note Date of Service The patient was seen on 04/15/19. NOTE Postop Day 1 S/p rLTCS; uncomplicated S: pain well controlled, lochia and bleeding decreasing, voiding spontaneously, ambulating without assistance, tolerating regular diet. Breast feeding. O: vitals stable Heart: RRR, no murmurs Lungs: CTA BL Abd: Fundus firm at U Ext: no edema, nontender, negative Stacey's bilaterally A/P: 28 yo G2 now P2. /postop day 2 s/p rLTCS. Hemodynamically stable, afebrile, good pain control. Recovering well. -Routine postoperative care and advancement. -Anticipate discharge tomorrow VS,Fishbone, I+O VS, Fishbone, I+O Laboratory Tests 04/14/19 06:34 Red Blood Count 3.51 L, Mean Corpuscular Volume 88.0, Mean Corpuscular Hemoglobin 29.1, Mean Corpuscular Hemoglobin Concent 33.0, Red Cell Distribution Width 13.3 Vital Signs Date Time Temp Pulse Resp B/P (MAP) Pulse Ox O2 Delivery O2 Flow Rate FiO2 04/15/19 06:00 98.3 76 16 108/56 (73) 04/14/19 10:01 98 GME ATTESTATION GME ATTESTATION My faculty preceptor for this patient encounter was physically present during the encounter and was fully available. All aspects of the patient interview, examination, medical decision making process, and medical care plan development were reviewed and approved by the faculty preceptor. The faculty preceptor is aware and concurs with the plan as stated in the body of this note and will attest to such by his/her cosignature. LORE OLIVAREZ DO Apr 15, 2019 06:30
[2019-04-15] MEDS ORDERED: INFLUENZA QUADRIVALENT PF VACCINE 0.5ML SYRINGE (90686) IM ONE (09:00)
[2019-04-15] MEDS: PRENATAL VITAMINS CHEWABLE TABLET PO SCH (09:28)
[2019-04-15] MEDS: DOCUSATE SODIUM 100 MG CAP PO PRN ×2 (13:54→23:32)
[2019-04-15 18:03] VITALS: BP 114/68
[2019-04-16] MEDS: SIMETHICONE 80 MG CHEW TAB PO PRN ×2 (00:27→08:32)
[2019-04-16] MEDS: IBUPROFEN 800 MG TAB PO SCH ×2 (02:55→09:38)
[2019-04-16] MEDS: PERCOCET 5MG/325MG TAB PO PRN ×2 (05:17→10:43)
[2019-04-16 06:00] VITALS: BP 124/69
[2019-04-16] MEDS ORDERED: INFLUENZA QUADRIVALENT PF VACCINE 0.5ML SYRINGE (90686) IM ONE (09:00)
[2019-04-16] MEDS ORDERED: IBUP80TA PO (09:01)
[2019-04-16] MEDS: PRENATAL VITAMINS CHEWABLE TABLET PO SCH (09:37)
--- NOTE | 2019-04-17 19:40 | DSES ---
DATE OF ADMISSION: 04/13/2019 DATE OF DISCHARGE: 04/16/2019 HISTORY: 28-year-old, 2, para 1 female at 39 weeks gestation presents for elective repeat low transverse section. She has a history of one prior section. HOSPITAL COURSE: On 04/13/2019, she underwent repeat section for a 7 pound, 0 ounce female , scores 8 and 9. There were no complications. Her postoperative course was unremarkable. She had adequate return of bladder and bowel function. Her postoperative hemoglobin was 10.2 grams/dL. She was deemed stable for discharge on postoperative day #3. The baby went to the intensive care unit (ICU) for a low blood sugar. ADMISSION DIAGNOSES: 39 weeks, prior section times one. DISCHARGE DIAGNOSIS: Delivered. PROCEDURE: Repeat low transverse section. DISPOSITION: The patient will followup with Dr. Hinojosa in 2 weeks. Instructions were reviewed.
[2019-04-18] MEDS ORDERED: OXYC1TAB23 PO (16:39)
== END 2019-04-16 10:55 | disposition home or self-care (01) | DRG 540 ==
LOC: M LDI 05:21 → M OBS 10:14
PROVIDERS: ADMIT Specialist; ATTEND Specialist
PROC: 10D00Z1 Extraction of Products of Conception, Low, Open Approach (ICD-10-PCS; principal; 2019-04-13 07:30)
DX: O34.211 Maternal care for low transverse scar from previous cesarean delivery (principal); Z3A.39 39 weeks gestation of pregnancy; Z37.0 Single live birth

== ENCOUNTER → 2019-06-13 | Outpatient (REF) | payer OTHER ==
[~2019-06-13] MED LIST changes: +IBUP80TA PO; +OXYC1TAB23 PO
== END ==
LOC: M SFHCWAGY 11:52
PROVIDERS: ATTEND Nurse Practitioner Women's Health
DX: Z12.4 Encounter for screening for malignant neoplasm of cervix (principal)

== ENCOUNTER → 2020-04-05 | Outpatient (CLI) | payer OTHER ==
--- NOTE | 2020-04-25 12:38 | REP ---
FIRST TRIMESTER ULTRASOUND TECHNIQUE: Real-time sonographic evaluation of gravid uterus performed. FINDINGS: There is a single live intrauterine gestational age. The estimated gestational age based on todays crown-rump length measurement of 19 mm is 8 weeks 3 days, estimated date of confinement (EDC) 11/12/2020. heart rate is 176 beats per minute. Cervix is closed and measures 3 cm in length. There is no subchorionic hemorrhage. Right ovary appears normal measuring 3.8 x 2.0 x 2.0 cm. Left ovary is enlarged and contains two adjacent anechoic simple cysts measuring 2.9 x 2.4 x 2.8 cm and 3.2 x 2.8 x 2.9 cm. MTDD
== END ==
LOC: M WHC 13:26
PROVIDERS: ATTEND Advanced Practice Midwife
DX: Z34.81 Encounter for supervision of other normal pregnancy, first trimester (principal)

== ENCOUNTER → 2020-04-05 | Outpatient (CLI) | payer OTHER ==
[2020-04-05 15:58] LABS: BASO # 0.1 10^3/uL (0.0-0.2); BASO % 0.6 % (0.0-1.0); EOS # 0.1 10^3/uL (0.0-0.5); EOS % 0.4 % (0.0-3.0); HEMATOCRIT 38.1 % (36.0-47.0); HEMOGLOBIN 12.5 g/dl (12.0-15.5); LYMPH # 2.4 10^3/uL (1.5-5.0); LYMPH % 16.9 % (24.0-44.0); MEAN CORPUSCULAR HEMOGLOBIN 29.5 pg (27.0-33.0); MEAN CORPUSCULAR HGB CONC 32.8 g/dl (32.0-36.5); MEAN CORPUSCULAR VOLUME 89.9 fl (80.0-96.0); MONO # 0.9 10^3/uL (0.0-0.8); MONO % 6.1 % (0.0-5.0); NEUTROPHILS # 10.6 10^3/uL (1.5-8.5); NEUTROPHILS % 75.6 % (36.0-66.0); PLATELET COUNT, AUTOMATED 292 10^3/uL (150-450); RED BLOOD COUNT 4.24 10^6/uL (4.00-5.40)
[2020-04-05 17:11] LABS: HEPATITIS C VIRUS ABY INDEX 0.2 INDEX (<0.8); HIV 1&2 SCREEN CENTAUR NEGATIVE (NEGATIVE)
== END ==
LOC: M PLALAB 13:57
PROVIDERS: ATTEND Advanced Practice Midwife
DX: Z34.81 Encounter for supervision of other normal pregnancy, first trimester (principal)

== ENCOUNTER → 2020-04-05 | Outpatient (REF) | payer OTHER ==
[2020-04-05 20:59] LABS: CHLAMYDIA DNA AMPLIFICATION NEGATIVE (NEGATIVE); GC DNA AMPLIFICATION NEGATIVE (NEGATIVE)
== END ==
LOC: M SFHCWAGY 15:00
PROVIDERS: ATTEND Advanced Practice Midwife
DX: Z34.81 Encounter for supervision of other normal pregnancy, first trimester (principal)

== ENCOUNTER → 2020-04-23 | Outpatient (CLI) | payer OTHER | LOC: M PLALAB 10:11 | PROVIDERS: ATTEND Advanced Practice Midwife | DX: Z34.81 Encounter for supervision of other normal pregnancy, first trimester (principal); Z3A.00 Weeks of gestation of pregnancy not specified ==

== ENCOUNTER 2020-06-13 14:19 | Emergency (ER) | payer OTHER ==
[~2020-06-13] VITALS: Ht 160 cm; Wt 67.7 kg
--- NOTE | 2020-06-13 15:27 | REP ---
INDICATION: hx of clot, pain leg, medial knee COMPARISON: None. TECHNIQUE: Real time compression and duplex Doppler interrogation of the right lower extremity deep venous system is performed. FINDINGS: The right common femoral, superficial femoral and popliteal veins are fully compressible with transducer pressure and demonstrate normal spontaneous and phasic flow, without evidence of deep venous thrombosis. IMPRESSION: No evidence of deep venous thrombosis of the right lower extremity femoral popliteal venous system. <Electronically signed by Ivan Colmenares > 06/13/20 [id number]
[2020-06-13 16:14] VITALS: BP 121/69
== END 2020-06-13 16:15 | disposition home or self-care (01) ==
LOC: M ED 14:19
DX: O9A.219 Injury, poisoning and certain other consequences of external causes complicating pregnancy, unspecified trimester (principal); S86.911A Strain of unspecified muscle(s) and tendon(s) at lower leg level, right leg, initial encounter; Z86.718 Personal history of other venous thrombosis and embolism; Z3A.18 18 weeks gestation of pregnancy; Y92.9 Unspecified place or not applicable; Y93.9 Activity, unspecified; Y99.9 Unspecified external cause status

== ENCOUNTER → 2020-06-18 | Outpatient (CLI) | payer OTHER ==
--- NOTE | 2020-06-18 17:07 | REP ---
INDICATION: ANATOMY. COMPARISON: 04/05/2020. TECHNIQUE: Real-time sonographic evaluation of the gravid uterus performed. FINDINGS: Estimated gestational age is19 weeks 6 days, EDC 11/06/2020. Today's measurements indicate appropriate growth. Presentation: Cephalic Placenta on the left laterally, grade 1, without evidence of placenta previa. heart rate is recorded at 146 beats per minute. Amniotic fluid is subjectively normal. Closed cervical length is measured at 3.9 cm. There is a linear echogenicity at the inferior margin of the placenta which may represent a small synechia. Biometry chart: BPD: 42 mm, 18 weeks 5 days, 20th percentile. HC: 157 mm, 18 weeks 4 days, 12 percentile AC: 134 mm, 18 weeks 6 days, 28th percentile Femur length: 30 mm, 19 weeks 2 days, 36th percentile HC to AC ratio: 1.17, normal range 1.06-1.25. Estimated weight: 271g, 10th percentile. anatomy: Cranium: Grossly normal Lateral Ventricles/Choroid Plexus: Grossly normal Posterior Fossa/Cerebellum: Grossly normal Nose/lips/profile: Grossly normal Four chamber heart: Grossly normal Right ventricular outflow tract: Grossly normal Left ventricular outflow tract: Grossly normal Left-sided stomach: Grossly normal Kidneys: Grossly normal Bladder: Grossly normal Cord Insertion: Grossly normal 3 vessel cord: Grossly normal Spine: Grossly normal IMPRESSION: Viable single intrauterine gestation as above. <Electronically signed by Ivan Colmenares > 06/18/20 [id number]
== END ==
LOC: M WHC 15:28
PROVIDERS: ATTEND Specialist
DX: Z34.02 Encounter for supervision of normal first pregnancy, second trimester (principal); Z3A.18 18 weeks gestation of pregnancy

== ENCOUNTER → 2020-08-07 | Outpatient (REF) | payer OTHER ==
[2020-08-07 14:01] LABS: HEMOGLOBIN 11.5 g/dl (12.0-15.5); MEAN CORPUSCULAR HEMOGLOBIN 29.8 pg (27.0-33.0); MEAN CORPUSCULAR HGB CONC 31.9 g/dl (32.0-36.5); MEAN CORPUSCULAR VOLUME 93.3 fl (80.0-96.0); PLATELET COUNT, AUTOMATED 295 10^3/uL (150-450); RED BLOOD COUNT 3.86 10^6/uL (4.00-5.40); WHITE BLOOD COUNT 13.8 10^3/uL (4.0-10.0)
== END ==
LOC: M PLALAB 10:51
PROVIDERS: ATTEND Obstetrics & Gynecology
DX: Z34.92 Encounter for supervision of normal pregnancy, unspecified, second trimester (principal)

== ENCOUNTER → 2020-10-22 | Outpatient (REF) | payer OTHER | LOC: M SFHCWAGY 16:51 | PROVIDERS: ATTEND Specialist | DX: Z34.83 Encounter for supervision of other normal pregnancy, third trimester (principal) ==

== ENCOUNTER → 2020-11-06 | Outpatient (CLI) | payer OTHER | LOC: M LABSMTC 09:37 | PROVIDERS: ATTEND Anesthesiology | DX: Z20.828 Contact with and (suspected) exposure to other viral communicable diseases (principal); Z11.59 Encounter for screening for other viral diseases ==

== ENCOUNTER 2020-11-11 05:39 | Inpatient (IN) | payer OTHER ==
[2020-11-11] VITALS (9 sets, daily range): BP systolic 115–126; BP diastolic 58–84
[~2020-11-11] VITALS: Ht 160 cm; Wt 81.0 kg
[2020-11-11] MEDS ORDERED: ceFAZolin SOD 2 GM in IV 1 EA IV ONE (06:00)
[2020-11-11] MEDS ORDERED: BICITRA 30ML SOLN UDC PO ONE (06:00)
[2020-11-11] MEDS ORDERED: LR 800 ML IV ONE (06:00)
[2020-11-11 06:37] LABS: HEMATOCRIT 36.6 % (36.0-47.0); HEMOGLOBIN 11.1 g/dl (12.0-15.5); MEAN CORPUSCULAR HEMOGLOBIN 24.8 pg (27.0-33.0); MEAN CORPUSCULAR HGB CONC 30.3 g/dl (32.0-36.5); MEAN CORPUSCULAR VOLUME 81.9 fl (80.0-96.0); PLATELET COUNT, AUTOMATED 338 10^3/uL (150-450); RED BLOOD COUNT 4.47 10^6/uL (4.00-5.40); WHITE BLOOD COUNT 12.8 10^3/uL (4.0-10.0)
[2020-11-11] MEDS ORDERED: LR 1,000 ML IV SCH ×2 (06:45→09:45)
[2020-11-11] MEDS ORDERED: MORPHINE PRES-FREE INJ 10 MG/10 ML VIAL (J2274) As Ordered ONE (08:29)
[2020-11-11] MEDS ORDERED: PHENYLephrine 500MCG 5ML (100MCG/ML) SYRINGE As Ordered ONE (08:29)
[2020-11-11] MEDS ORDERED: ePHEDrine SULFATE 25 MG/5 ML(5MG/ML) SYRINGE As Ordered ONE (08:29)
[2020-11-11] MEDS ORDERED: OXYTOCIN 30 UNITS IN 0.9% NaCl 500ML IV BAG (J2590) As Ordered ONE ×2 (08:29→09:50)
[2020-11-11] MEDS ORDERED: diphenhydrAMINE 50MG/ML VIAL (J1200) IV PRN (08:42)
[2020-11-11] MEDS ORDERED: ONDANSETRON 4MG/2ML VIAL IV PRN ×3 (08:42→09:45)
[2020-11-11] MEDS ORDERED: METOCLOPRAMIDE INJ 10MG/2ML VIAL (J2765 PER 1) IV PRN ×2 (08:42→09:45)
[2020-11-11] MEDS ORDERED: NALOXONE INJ 0.4MG/1ML VIAL (J2310 PER 1MG) IV PRN ×2 (08:42)
[2020-11-11] MEDS ORDERED: NALBUPHINE HCL 10 MG/ML AMP (J2300) IV PRN (08:42)
[2020-11-11] MEDS ORDERED: METOCLOPRAMIDE INJ 10MG/2ML VIAL (J2765 PER 1) As Ordered ONE (08:59)
[2020-11-11] MEDS ORDERED: ONDANSETRON 4MG/2ML VIAL As Ordered ONE (09:06)
[2020-11-11] MEDS ORDERED: KETOROLAC 60MG 2ML VIAL As Ordered ONE (09:06)
[2020-11-11] MEDS ORDERED: fentaNYL 100 MCG/2 ML INJECTION (J3010) As Ordered ONE (09:09)
[2020-11-11] MEDS ORDERED: OXYTOCIN DRIP 30 UNITS in IV 1 EA IV SCH (09:35)
[2020-11-11] MEDS ORDERED: MEASLES,MUMPS,RUBELLA VACCINE INJ (MMR-II) (90707) SC SCH (09:35)
[2020-11-11] MEDS ORDERED: PERCOCET 5MG/325MG TAB PO PRN ×2 (09:35→09:45)
[2020-11-11] MEDS ORDERED: RHOGAM 300 MCG (1500 IU) INJ (J2790) IM SCH (09:35)
[2020-11-11] MEDS ORDERED: fentaNYL 100 MCG/2 ML INJECTION (J3010) IV PRN (09:45)
--- NOTE | 2020-11-11 09:46 | ROOPDOC ---
[facility] Report Of Operation Report of Operation DATE OF PROCEDURE: 11/11/20 Report of operation Preoperative diagnosis: 39 weeks, prior x 2 Postoperative diagnosis: same Procedure: Repeat low transverse section . Surgeon: Abraham Dai M.D. Asst.: Florinda Huggins CNM EBL: 600 ml. Urine output: 100 mL's. Findings: 8 lbs. 1 oz. female , 's 9 and 9 g normal uterus, fallopian tubes, ovaries. Operative summary: Patient taken to the operating room where spinal anesthesia was induced. She was prepped and draped sterile fashion in the supine position. A Min catheter was placed. A Pfannenstiel skin incision was made with scalpel. Fascia was incised and extended bilaterally. The peritoneal cavity was entered. A Mobius retractor was placed. A bladder flap was created. A curvilinear incision was made in lower uterine segment until Clear fluid was noted. The incision was extended manually. The was delivered from the vertex position without difficulty. Cord was double clamped and cut. The infant was handed waiting nurses. . The placenta was expressed. Uterus was closed with O- Vicryl in a running locked fashion. A second imbricating layer of Vicryl was placed. Peritoneum was closed with 2-0 Vicryl a running fashion. Fascia was closed with 0 Vicryl in running fashion. Skin was closed 4-0 Monocryl subcuticular sutures. Sponge, instrument and needle counts were correct. Florinda Huggins CNM, assisted with all aspects of the procedure. She helped close each layer of the incision and deliver the fetus. ABRAHAM DAI MD Nov 11, 2020 09:46
[2020-11-11] MEDS: PERCOCET 5MG/325MG TAB PO PRN ×2 (11:18→17:50)
[2020-11-11] MEDS: SIMETHICONE 80MG CHEW TAB PO PRN ×2 (11:50→17:50)
[2020-11-11] MEDS: LR 1,000 ML IV SCH ×2 (15:27→17:35)
[2020-11-11] MEDS: KETOROLAC 30 MG/ML 1ML VIAL IV SCH ×2 (15:27→21:37)
[2020-11-11] MEDS: DOCUSATE SODIUM 100MG CAPSULE PO PRN (21:36)
[2020-11-12] MEDS: LR 1,000 ML IV SCH ×3 (01:35→17:35)
[2020-11-12 02:00] VITALS: BP 121/65
[2020-11-12] MEDS: KETOROLAC 30 MG/ML 1ML VIAL IV SCH (03:01)
[2020-11-12 06:00] VITALS: BP 117/58
[2020-11-12 06:52] LABS: HEMATOCRIT 27.9 % (36.0-47.0); MEAN CORPUSCULAR HEMOGLOBIN 25.6 pg (27.0-33.0); MEAN CORPUSCULAR HGB CONC 30.8 g/dl (32.0-36.5); PLATELET COUNT, AUTOMATED 233 10^3/uL (150-450); RED BLOOD COUNT 3.36 10^6/uL (4.00-5.40); WHITE BLOOD COUNT 11.3 10^3/uL (4.0-10.0)
[2020-11-12 06:55] LABS: HEMOGLOBIN 8.6 g/dl (12.0-15.5)
[2020-11-12] MEDS ORDERED: OXYC1TAB23 PO (07:07)
[2020-11-12] MEDS ORDERED: IBUP80TA PO (07:08)
[2020-11-12] MEDS: DOCUSATE SODIUM 100MG CAPSULE PO PRN ×2 (07:42→20:03)
[2020-11-12] MEDS: SIMETHICONE 80MG CHEW TAB PO PRN ×3 (07:42→20:03)
[2020-11-12] MEDS: PRENATAL VITAMINS CHEWABLE TABLET PO SCH (07:43)
[2020-11-12 10:00] VITALS: BP 126/75
[2020-11-12] MEDS: IBUPROFEN 800 MG TAB PO SCH ×2 (11:14→18:34)
--- NOTE | 2020-11-12 11:25 | IPNPDOC ---
Progress Note Date of Service: Nov 12, 2020 Day#: 1 Progress Note SUBJECT: Status post RLTCS She has been ambulating, voiding spontaneously without issue and tolerating regular diet. Lochia decreasing/minimal. Pain is well-controlled. Incision bandage is clean/unsaturated. Denies headache, visual changes, right upper quadrant pain, shortness of breath or chest pain. OBJECTIVE: VITAL SIGNS: Within normal limits, afebrile. Alert and oriented times three. Abdomen: Fundus firm at U-2. Soft, NTTP. Incision bandage not soaked through ASSESSMENT: Status post uncomplicated RLTCS. Vitals within normal limits, afebrile, hemodynamically stable with no evidence of infection. PLAN: Discharge to home tomorrow Routine /postoperative advancement Postoperative instructions/precautions reviewed. Routine PP visit at 2 and 6 weeks in clinic. VS, I&O, 24H, Fishbone Vital Signs/I&O Vital Signs Date Time Temp Pulse Resp B/P (MAP) Pulse Ox O2 Delivery O2 Flow Rate FiO2 11/12/20 10:00 98.0 88 18 126/75 (92) 98 11/12/20 07:46 Room Air I&O- Last 24 Hours up to 6 AM 11/12/20 06:00 Intake Total 3660 ml Output Total 2535 ml Balance 1125 ml Laboratory Data 24H LABS Laboratory Tests 2 11/12/20 06:26: Nucleated Red Blood Cells % (auto) 0.0 CBC/BMP Laboratory Tests 11/12/20 06:26 RIZWANA TOLENTINO DO Nov 12, 2020 11:25
[2020-11-12] MEDS: PERCOCET 5MG/325MG TAB PO PRN ×3 (11:45→23:40)
[2020-11-12 14:00] VITALS: BP 118/64
[2020-11-12 17:53] VITALS: BP 119/69
[2020-11-12 22:00] VITALS: BP 107/59
[2020-11-13 02:00] VITALS: BP 123/71
[2020-11-13] MEDS: IBUPROFEN 800 MG TAB PO SCH ×3 (02:59→18:39)
[2020-11-13] MEDS: PERCOCET 5MG/325MG TAB PO PRN ×3 (05:42→17:51)
[2020-11-13 06:00] VITALS: BP 124/83
[2020-11-13] MEDS: PRENATAL VITAMINS CHEWABLE TABLET PO SCH (07:52)
--- NOTE | 2020-11-13 09:02 | DS.PDOC ---
Discharge Summary General Date of Admission Nov 11, 2020 at 05:39 Date of Discharge 11/13/20 Discharge Summary DATE OF ADMISSION: 11/11/2020 DATE OF DISCHARGE: 11/13/2020 ADMISSION DIAGNOSIS:39 weeks gestation, history of low transverse section DISCHARGE DIAGNOSIS: Status post repeat low transverse section DISCHARGE SUMMARY: The patient was admitted at, 39+ weeks gestation with a diagnosis of full-term gestation and history of a low transverse section with the plan of elective repeat . The section delivery was uncomplicated. Her postoperative course was uncomplicated as well. On postoperative day #2, she was meeting all discharge criteria. PHYSICAL EXAMINATION ON DATE OF DISCHARGE: Normotensive. Normal heart rate. Afebrile. HEART: Regular rate and rhythm. No murmurs, gallops, or rubs. LUNGS: Clear to auscultation bilaterally. ABDOMEN: Soft, nontender, nondistended. Incision bandage clean and dry. EXTREMITIES: Nonedematous, nontender. She was meeting all discharge criteria on postoperative day #2. We reviewed routine fever, infectious, pain, and bleeding precautions. She is to followup in 2 weeks for incision check. Her postoperative medications are Percocet, Motrin, and Colace. Vital Signs/I&Os Vital Signs Date Time Temp Pulse Resp B/P (MAP) Pulse Ox O2 Delivery O2 Flow Rate FiO2 11/13/20 06:00 98.8 66 17 124/83 (97) 98 Room Air Discharge Medications Scheduled Ibuprofen (Ibuprofen) 800 Mg Tablet, 800 MG PO Q8H Pnv No.95/Ferrous Fum/Folic AC ( Vitamins Tablet) 1 Tab Tab, 1 TAB PO DAILY, (Reported) Scheduled PRN Oxycodone HCl/Acetaminophen (Oxycodone-Acetaminophen 5-325) 1 Each Tablet, 1 TAB PO TIDP PRN for pain Allergies Coded Allergies: No Known Allergies (Unverified , 04/13/19) RIZWANA TOLENTINO DO Nov 13, 2020 09:02
--- NOTE | 2020-11-13 09:05 | DS.PDOC ---
Discharge Summary General Date of Admission Nov 11, 2020 at 05:39 Date of Discharge 11/13/2020 Discharge Summary see other d/c summary Vital Signs/I&Os Vital Signs Date Time Temp Pulse Resp B/P (MAP) Pulse Ox O2 Delivery O2 Flow Rate FiO2 11/13/20 06:00 98.8 66 17 124/83 (97) 98 Room Air Discharge Medications Scheduled Ibuprofen (Ibuprofen) 800 Mg Tablet, 800 MG PO Q8H Pnv No.95/Ferrous Fum/Folic AC ( Vitamins Tablet) 1 Tab Tab, 1 TAB PO DAILY, (Reported) Scheduled PRN Oxycodone HCl/Acetaminophen (Oxycodone-Acetaminophen 5-325) 1 Each Tablet, 1 TAB PO TIDP PRN for pain Allergies Coded Allergies: No Known Allergies (Unverified , 04/13/19) RIZWANA TOLENTINO DO Nov 13, 2020 09:05
[2020-11-13] MEDS: SIMETHICONE 80MG CHEW TAB PO PRN (10:29)
[2020-11-13] MEDS: DOCUSATE SODIUM 100MG CAPSULE PO PRN (10:29)
== END 2020-11-13 19:15 | disposition home or self-care (01) | DRG 540 ==
LOC: M LDI 05:39 → M OBS 10:35
PROVIDERS: ADMIT Specialist; ATTEND Specialist
PROC: 10D00Z1 Extraction of Products of Conception, Low, Open Approach (ICD-10-PCS; principal; 2020-11-11 07:30)
DX: O34.211 Maternal care for low transverse scar from previous cesarean delivery (principal); Z37.0 Single live birth; Z3A.39 39 weeks gestation of pregnancy

== ENCOUNTER → 2021-03-04 | Outpatient (CLI) | payer OTHER ==
--- NOTE | 2021-03-04 08:37 | REP ---
INDICATION: RUQ PAIN. COMPARISON: None. TECHNIQUE: Multiple ultrasonographic images of the abdominal right upper quadrant. FINDINGS: There is no cholelithiasis, gallbladder wall thickening or pericholecystic fluid. There is no intrahepatic or extrahepatic biliary duct dilatation. The common biliary duct measures 2.06 mm in diameter. The hepatic parenchyma is homogeneous and otherwise unremarkable. The body and tail of the pancreas are obscured by bowel gas. The visualized areas of the pancreatic head are unremarkable. The right kidney is normal size measuring 11.3 x 5.0 x 4.7 cm. There is no right renal calculus, hydronephrosis, solid mass or cystic mass. There is no abdominal right upper quadrant free fluid. IMPRESSION: Essentially negative abdominal right upper quadrant ultrasound. There are limited views of the pancreas. <Electronically signed by Ivan Bolaños > 03/04/21 [id number]
== END ==
LOC: M RAD 07:19
PROVIDERS: ATTEND Physician Assistant Medical
DX: R10.11 Right upper quadrant pain (principal)

== ENCOUNTER → 2021-03-12 | Outpatient (REF) | payer OTHER ==
[2021-03-12 19:15] LABS: BASO # 0.1 10^3/uL (0.0-0.2); BASO % 0.9 % (0.0-1.0); EOS # 0.2 10^3/uL (0.0-0.5); EOS % 2.7 % (0.0-3.0); HEMATOCRIT 42.9 % (36.0-47.0); HEMOGLOBIN 13.5 g/dl (12.0-15.5); LYMPH # 2.3 10^3/uL (1.5-5.0); LYMPH % 30.3 % (24.0-44.0); MEAN CORPUSCULAR HEMOGLOBIN 27.5 pg (27.0-33.0); MEAN CORPUSCULAR HGB CONC 31.5 g/dl (32.0-36.5); MEAN CORPUSCULAR VOLUME 87.4 fl (80.0-96.0); MONO # 0.6 10^3/uL (0.0-0.8); MONO % 7.6 % (2.0-8.0); NEUTROPHILS # 4.4 10^3/uL (1.5-8.5); NEUTROPHILS % 58.4 % (36.0-66.0); PLATELET COUNT, AUTOMATED 319 10^3/uL (150-450); RED BLOOD COUNT 4.91 10^6/uL (4.00-5.40); WHITE BLOOD COUNT 7.5 10^3/uL (4.0-10.0)
[2021-03-12 19:20] LABS: APPEARANCE, URINE HAZY (CLEAR); BACTERIA, URINE AUTO NEGATIVE (NEGATIVE); BILIRUBIN, URINE AUTO NEGATIVE (NEGATIVE); BLOOD, URINE BLOOD NEGATIVE (NEGATIVE); COLOR, URINE YELLOW (YELLOW); GLUCOSE, URINE (UA) AUTO NEGATIVE (NEGATIVE); KETONE, URINE AUTO NEGATIVE (NEGATIVE); LEUKOCYTE ESTERASE, URINE AUTO TRACE (NEGATIVE); MUCUS, URINE SMALL (NEGATIVE); NITRITE, URINE AUTO NEGATIVE (NEGATIVE); PROTEIN, URINE AUTO NEGATIVE (NEGATIVE); RBC, URINE AUTO 2 /HPF (0-3); SPECIFIC GRAVITY URINE AUTO 1.024 (1.002-1.035); SQUAMOUS EPITHELIAL CELL UR AU 3 /HPF (0-6); WBC, URINE AUTO 2 /HPF (0-3)
[2021-03-12 19:49] LABS: HCG, SERUM QUALITATIVE NEGATIVE (NEGATIVE)
[2021-03-12 19:55] LABS: ALBUMIN 3.9 GM/DL (3.2-5.2); ALT/SGPT 22 U/L (12-78); AMYLASE 70 U/L (25-115); BILIRUBIN,TOTAL 0.2 MG/DL (0.2-1.0); BLOOD UREA NITROGEN 19 MG/DL (7-18); CARBON DIOXIDE LEVEL 28 MEQ/L (21-32); CHLORIDE LEVEL 107 MEQ/L (98-107); CREATININE FOR GFR 0.81 MG/DL (0.55-1.30); GLOMERULAR FILTRATION RATE > 60.0 (>60); GLUCOSE, FASTING 78 MG/DL (70-100); LIPASE 233 U/L (73-393); SODIUM LEVEL 141 MEQ/L (136-145); THYROID STIMULATING HORMONE 0.888 uIU/ML (0.358-3.740)
== END ==
LOC: M SFHCCAPE 13:41
PROVIDERS: ATTEND Physician Assistant
DX: R10.11 Right upper quadrant pain (principal)

== ENCOUNTER 2021-04-28 03:12 | Observation (INO) | payer OTHER ==
[~2021-04-28] VITALS: Ht 160 cm; Wt 67.6 kg
[2021-04-28] MEDS ORDERED: HOME MED LIST COMPLETE! XX SCH (04:05)
[2021-04-28] MEDS ORDERED: MORPHINE 2 MG/ML 1ML VIAL (J2270) IV PRN (04:25)
[2021-04-28] MEDS ORDERED: ONDANSETRON 4MG/2ML VIAL IV PRN (04:25)
[2021-04-28] MEDS ORDERED: KETOROLAC 30 MG/ML 1ML VIAL IV PRN (04:25)
[2021-04-28] MEDS ORDERED: NS 1,000 ML IV ONE (04:30)
--- NOTE | 2021-04-28 04:43 | HPEPDOC ---
[facility] Medical History & Physical Date of Admission Apr 28, 2021 Date of Service: Apr 28, 2021 Attending Physician: ODELL SHEN MD History and Physical CHIEF COMPLAINT: [30 y/o female c/o abd pain x2 days] HISTORY OF PRESENT ILLNESS: [This is a 30 y/o female with no significant pmh who presented [facility] earlier today 04/28 with a cc of abdominal pain, particularly in the RLQ, increasing over 2 days. Patient describes her pain as crampy in nature. Patient states that along with her pain, she has had increasing nausea and poor appetite. Patient tells me that she has been able to keep food and drink down and denies any vomiting. Patient states that her last normal bowel movement was yesterday morning and has had one episode of diarrhea in between then and now. Patient denies any associated fever, chills, vomiting, chest pain, sob, dysuria, pedal edema.] PAST MEDICAL HISTORY: 1. [DVT after ankle surgery]. PAST SURGICAL HISTORY: 1. [C section x3]. 2. [Ankle surgery x4]. SOCIAL HISTORY: Tobacco use:[Denies] ETOH: [Denies] Illicit drug use: [Denies] FAMILY HISTORY: Reviewed - none pertinent ALLERGIES: Please see below. REVIEW OF SYSTEMS: CONSTITUTIONAL: [Denies fevers, chills]. HEENT: [Denies uri sx]. CARDIOVASCULAR: [Denies chest pain, palpitations]. RESPIRATORY: [Denies sob, wheezing]. GASTROINTESTINAL: [See HPI]. GENITOURINARY: [Denies dysuria]. SKIN: [Denies rash]. MUSCULOSKELETAL: [Denies acute joint/back pain]. NEUROLOGICAL: [Denies syncope, paresthesias]. ENDOCRINE: [Denies hx of DM]. HEMATOLOGIC/LYMPHATIC: [Hx of vte]. HOME MEDICATIONS: Please see below. PHYSICAL EXAMINATION: VITAL SIGNS: Please see below. GENERAL APPEARANCE: [This is a 30 y/o female who is alert and oriented to all questioning. She is not in any acute distress]. HEENT: [No mass or lesion. EOMI. No scleral icterus. Nares patent. Oral mucosa moist]. CARDIOVASCULAR: [Borderline tachy rate, regular rhythm. No murmurs, rubs, gallops]. LUNGS: [Good air flow b/l. No wheezing, rales, rhonchi]. ABDOMEN: [Nondistended.]. MUSCULOSKELETAL: [No joint deformity]. EXTREMITIES: [No pedal edema. No overlying skin changes]. NEUROLOGICAL: [Speech clear. A+O x3. No focal deficits]. PSYCHIATRIC: [Mood and affect appear appropriate]. LABORATORY DATA: See below. IMAGING: [CT Abd/pelvis performed at [facility] is not readily available to me but was indicative of most likely partial small bowel obstruction much less likely inflammatory vs. infectious etiology of small bowel loop] MICROBIOLOGY: Please see below. ASSESSMENT: [This is a 30 y/o female with no significant pmh who presented to [facility] earlier today 04/28 with a cc of abdominal pain, particularly in the RLQ, increasing over 2 days. Patient found to have low grade/partial small bowel obstruction]. . PLAN: 1. [Partial SBO - Patient has had 3 sections in the past 3 years, sbo potentially caused by adhesions from recent abdominal surgery - Dr. Khalil, general surgery, has been consulted and agreed to evaluated patient. Recommendations and assistance greatly appreciated - NG tube currently in place. Will continue for now and await general surgery consult - patient may have sips and chips while ng tube suction is on only until evaluated by surgery - pain control with morphine for severe pain, toradol for mod pain - nausea control with zofran - will give one bag of ns maintenance fluid while on restricted diet - patient's only notable lab value at outside hospital was wbc of 12.5. At this time i feel this is likely reactive and am choosing not to start abx at this time. - admit to med surg under obs DVT prophylaxis - mechanical]. Vital Signs Vital Signs Date Time Temp Pulse Resp B/P (MAP) Pulse Ox O2 Delivery O2 Flow Rate FiO2 04/28/21 03:28 97.3 82 18 128/73 (91) 94 Room Air Home Medications Scheduled Pnv No.95/Ferrous Fum/Folic AC ( Vitamins Tablet) 1 Tab Tab, 1 TAB PO DAILY Allergies Coded Allergies: No Known Allergies (Unverified , 04/13/19) A-FIB/CHADSVASC A-FIB History Current/History of A-Fib/PAF?: No LIBRADO RANGEL Apr 28, 2021 04:43
[2021-04-28 05:50] VITALS: BP 126/82
[2021-04-28 07:46] LABS: BASO # 0.1 10^3/uL (0.0-0.2); BASO % 0.8 % (0.0-1.0); EOS # 0.1 10^3/uL (0.0-0.5); EOS % 0.8 % (0.0-3.0); HEMATOCRIT 40.2 % (36.0-47.0); HEMOGLOBIN 13.3 g/dl (12.0-15.5); LYMPH % 19.3 % (24.0-44.0); MEAN CORPUSCULAR HEMOGLOBIN 28.7 pg (27.0-33.0); MEAN CORPUSCULAR HGB CONC 33.1 g/dl (32.0-36.5); MEAN CORPUSCULAR VOLUME 86.6 fl (80.0-96.0); MONO # 0.9 10^3/uL (0.0-0.8); MONO % 8.8 % (2.0-8.0); NEUTROPHILS # 7.3 10^3/uL (1.5-8.5); NEUTROPHILS % 70.1 % (36.0-66.0); PLATELET COUNT, AUTOMATED 274 10^3/uL (150-450); RED BLOOD COUNT 4.64 10^6/uL (4.00-5.40); WHITE BLOOD COUNT 10.5 10^3/uL (4.0-10.0)
[2021-04-28 08:18] LABS: ALBUMIN 3.4 GM/DL (3.2-5.2); ALT/SGPT 14 U/L (12-78); BILIRUBIN,TOTAL 0.3 MG/DL (0.2-1.0); BLOOD UREA NITROGEN 12 MG/DL (7-18); CARBON DIOXIDE LEVEL 28 MEQ/L (21-32); CHLORIDE LEVEL 109 MEQ/L (98-107); GLOMERULAR FILTRATION RATE > 60.0 (>60); GLUCOSE, FASTING 90 MG/DL (70-100); POTASSIUM SERUM 3.9 MEQ/L (3.5-5.1); SODIUM LEVEL 143 MEQ/L (136-145); TOTAL PROTEIN 6.3 GM/DL (6.4-8.2)
--- NOTE | 2021-04-28 09:44 | REP ---
INDICATION: SBO COMPARISON: None. TECHNIQUE: Supine view of the abdomen and pelvis. FINDINGS: Bowel gas pattern is nonspecific and without obstruction or perforation. No organomegaly. Oral contrast material is identified throughout the large bowel. No obvious abnormal calcifications. Skeletal structures intact. IMPRESSION: Normal abdominal radiograph. Oral contrast throughout the colon. No evidence for bowel obstruction. <Electronically signed by Mir Alfaro > 04/28/21 [id number]
--- NOTE | 2021-04-28 13:12 | CR.PDOC ---
General Date of Consultation: Apr 28, [address] Khalil HISTORY OF PRESENT ILLNESS: The patient is a 30-year-old female with previous history of x3 who presented to the [facility] with abdominal pain and was transferred to [facility] for further management of SBO. The patient had reported a 2-day history of increasing abdominal pain worse in the right lower quadrant. Crampy pain. Reports nausea, no vomiting. States she had some diarrhea yesterday. NG tube is currently in place. The patient states this morning that she is feeling much better. Reports a bowel movement this morning. Decreased abdominal distention and significant improvement in pain. ALLERGIES: Please see below. HOME MEDICATIONS: Please see below. PAST MEDICAL HISTORY: DVT after ankle surgery PAST SURGICAL HISTORY: x3 Ankle surgery x4 SOCIAL HISTORY: Non-smoker REVIEW OF SYSTEMS: As noted in HPI otherwise 10 point review of systems unremarkable PHYSICAL EXAMINATION: VITAL SIGNS: Please see below. GENERAL APPEARANCE: Awake and alert, sitting up in bed HEENT: NG tube in place ABDOMEN: Soft, nondistended, only mild tenderness in the right lower quadrant area but no guarding or rebound. No grimacing. EXTREMITIES: No edema CT abdomen/pelvis at [facility] indicated likely partial small bowel obstruction. LABORATORY DATA: WBC 10.5 this morning, noted to be 12.5 at outside hospital ASSESSMENT/PLAN: Abdominal pain/partial SBO. The patient is noted to have had a previous history of 3 C-sections. The patient is reviewed and examined by Dr. Khalil this morning. The patient is feeling much better reporting improvement in abdominal pain and bloating and reports bowel movement this morning. Abdominal x-ray is requested and if imaging is improved we will plan to discont inue NG tube and trial of clear liquids. This is reviewed and discussed with the patient who verbalizes understanding and agreement. Vital Signs/I&O Vital Signs Date Time Temp Pulse Resp B/P (MAP) Pulse Ox O2 Delivery O2 Flow Rate FiO2 04/28/21 05:50 97.8 88 16 126/82 (97) 99 Room Air I&O- Last 24 Hours up to 6 AM 04/28/21 06:00 Intake Total 0 ml Output Total 0 ml Balance 0 ml Laboratory Data Labs 24H Laboratory Tests 2 04/28/21 07:28: Bedside Glucose (Misc Panel) 90 04/28/21 07:34: Immature Granulocyte % (Auto) 0.2, Neutrophils (%) (Auto) 70.1H, Lymphocytes (%) (Auto) 19.3L, Monocytes (%) (Auto) 8.8H, Eosinophils (%) (Auto) 0.8, Basophils (%) (Auto) 0.8, Neutrophils # (Auto) 7.3, Lymphocytes # (Auto) 2.0, Monocytes # (Auto) 0.9H, Eosinophils # (Auto) 0.1, Basophils # (Auto) 0.1, Nucleated Red Blood Cells % (auto) 0.0, Anion Gap 6L, Glomerular Filtration Rate > 60.0, Lactic Acid Level 0.5, Calcium Level 9.0, Total Bilirubin 0.3, Aspartate Amino Transf (AST/SGOT) 10, Alanine Aminotransferase (ALT/SGPT) 14, Alkaline Ph osphatase 86, Total Protein 6.3L, Albumin 3.4, Albumin/Globulin Ratio 1.2 CBC/BMP Laboratory Tests 04/28/21 07:34 Allergies Coded Allergies: No Known Allergies (Unverified , 04/13/19) Home Medications Scheduled Pnv No.95/Ferrous Fum/Folic AC ( Vitamins Tablet) 1 Tab Tab, 1 TAB PO DAILY, (Reported) Adriane Miguel Apr 28, 2021 13:12
[2021-04-28 14:00] VITALS: BP 104/55
--- NOTE | 2021-04-28 16:41 | DS.PDOC ---
Discharge Summary General Date of Admission Apr 28, 2021 at 04:22 Date of Discharge 04/28/21 Discharge Summary PROCEDURES PERFORMED DURING STAY: [None]. ADMITTING DIAGNOSES: 1. . DISCHARGE DIAGNOSES: 1. . COMPLICATIONS/CHIEF COMPLAINT: Small Bowel Obstruction. HISTORY OF PRESENT ILLNESS: . HOSPITAL COURSE: . DISCHARGE MEDICATIONS: Please see below. ALLERGIES: Please see below. PHYSICAL EXAMINATION ON DISCHARGE: Vital Signs: reviewed General: NAD, lying comfortably in bed HEENT: NC/AT, EOMI Neck: supple, no masses Chest: lungs CTA B/L Heart: +S1S2, RRR Abd: soft, NT, ND, +BS Ext: no edema Skin: no rashes MSK: full ROM at large joints Neuro: no gross focal deficits Psych: AAOx3 LABORATORY DATA: Please see below. IMAGING: PROGNOSIS: ACTIVITY: [As tolerated]. DIET: DISCHARGE PLAN: DISPOSITION: . DISCHARGE INSTRUCTIONS: 1. . ITEMS TO FOLLOWUP ON ON OUTPATIENT: 1. . DISCHARGE CONDITION: [Stable]. TIME SPENT ON DISCHARGE: 35 minutes. Vital Signs/I&Os Vital Signs Date Time Temp Pulse Resp B/P (MAP) Pulse Ox O2 Delivery O2 Flow Rate FiO2 04/28/21 14:00 97.6 74 17 104/55 (71) 96 Room Air I&O- Last 24 Hours up to 6 AM 04/28/21 06:00 Intake Total 0 ml Output Total 0 ml Balance 0 ml Laboratory Data Labs 24H Laboratory Tests 2 04/28/21 07:28: Bedside Glucose (Misc Panel) 90 04/28/21 07:34: Immature Granulocyte % (Auto) 0.2, Neutrophils (%) (Auto) 70.1H, Lymphocytes (%) (Auto) 19.3L, Monocytes (%) (Auto) 8.8H, Eosinophils (%) (Auto) 0.8, Basophils (%) (Auto) 0.8, Neutrophils # (Auto) 7.3, Lymphocytes # (Auto) 2.0, Monocytes # (Auto) 0.9H, Eosinophils # (Auto) 0.1, Basophils # (Auto) 0.1, Nucleated Red B lood Cells % (auto) 0.0, Anion Gap 6L, Glomerular Filtration Rate > 60.0, Lactic Acid Level 0.5, Calcium Level 9.0, Total Bilirubin 0.3, Aspartate Amino Transf (AST/SGOT) 10, Alanine Aminotransferase (ALT/SGPT) 14, Alkaline Phosphatase 86, Total Protein 6.3L, Albumin 3.4, Albumin/Globulin Ratio 1.2 CBC/BMP Laboratory Tests 04/28/21 07:34 FSBS Laboratory Tests Test 04/28/21 07:28 Range/Units Bedside Glucose (Misc Panel) 90 70-105 MG/DL Discharge Medications Scheduled Pnv No.95/Ferrous Fum/Folic AC ( Vitamins Tablet) 1 Tab Tab, 1 TAB PO DAILY, (Reported) Allergies Coded Allergies: No Known Allergies (Unverified , 04/13/19) ABRAHAM SHORT MD Apr 28, 2021 16:41
== END 2021-04-28 18:00 | disposition home or self-care (01) ==
LOC: M ED 03:12 → M MSPAV 03:13 → UNDOADMIN 04:22 → M ED INP 04:22 → ENRESERV 04:50 → M MSPAV 05:50 → M ED INP 05:50 → UNDODISIN 18:00
PROVIDERS: ADMIT Family Medicine; ATTEND Family Medicine
DX: K56.600 Partial intestinal obstruction, unspecified as to cause (principal)
CPT/HCPCS: 36415; 74018; 80053; 83605; 85025; 96361; 96374; 99285; J1885

== ENCOUNTER → 2021-05-19 | Outpatient (REF) | payer OTHER | LOC: M SFHCWAGY 19:34 | PROVIDERS: ATTEND Specialist | DX: R87.610 Atypical squamous cells of undetermined significance on cytologic smear of cervix (ASC-US) (principal) | CPT/HCPCS: 87624; G0123 ==

== ENCOUNTER → 2021-06-23 | Outpatient (REF) | payer OTHER | LOC: M SFHCCAPE 13:29 | PROVIDERS: ATTEND Physician Assistant | DX: J22 Unspecified acute lower respiratory infection (principal); J02.9 Acute pharyngitis, unspecified | CPT/HCPCS: 87804; U0003 ==

== ENCOUNTER → 2021-11-19 | Outpatient (REF) | payer OTHER ==
[2021-11-19 15:55] LABS: BASO # 0.1 10^3/uL (0.0-0.2); BASO % 1.1 % (0.0-1.0); EOS # 0.3 10^3/uL (0.0-0.5); EOS % 3.9 % (0.0-3.0); HEMATOCRIT 42.2 % (36.0-47.0); HEMOGLOBIN 13.5 g/dl (12.0-15.5); LYMPH # 2.1 10^3/uL (1.5-5.0); LYMPH % 28.5 % (24.0-44.0); MEAN CORPUSCULAR HEMOGLOBIN 28.4 pg (27.0-33.0); MEAN CORPUSCULAR VOLUME 88.7 fl (80.0-96.0); MONO # 0.5 10^3/uL (0.0-0.8); MONO % 7.1 % (2.0-8.0); NEUTROPHILS # 4.4 10^3/uL (1.5-8.5); NEUTROPHILS % 59.1 % (36.0-66.0); PLATELET COUNT, AUTOMATED 300 10^3/uL (150-450); RED BLOOD COUNT 4.76 10^6/uL (4.00-5.40); WHITE BLOOD COUNT 7.4 10^3/uL (4.0-10.0)
[2021-11-19 16:51] LABS: ALBUMIN 3.8 GM/DL (3.2-5.2); ALT/SGPT 24 U/L (12-78); BILIRUBIN,TOTAL 0.5 MG/DL (0.2-1.0); BLOOD UREA NITROGEN 14 MG/DL (7-18); CALCIUM LEVEL 8.9 MG/DL (8.5-10.1); CARBON DIOXIDE LEVEL 30 MEQ/L (21-32); CHLORIDE LEVEL 105 MEQ/L (98-107); CHOLESTEROL LEVEL 194 MG/DL (<200); CREATININE FOR GFR 0.75 MG/DL (0.55-1.30); GLOMERULAR FILTRATION RATE > 60.0 (>60); GLUCOSE, FASTING 84 MG/DL (70-100); HDL CHOLESTEROL 61 MG/DL (>40); LDL CHOLESTEROL 108 MG/DL (<100); NON-HDL-C 133 MG/DL; POTASSIUM SERUM 4.2 MEQ/L (3.5-5.1); SODIUM LEVEL 138 MEQ/L (136-145); TOTAL 25(OH) VITAMIN D 25.7 NG/ML (30.0-100.0); TOTAL PROTEIN 6.8 GM/DL (6.4-8.2); TRIGLYCERIDES LEVEL 124 MG/DL (<150)
== END ==
LOC: M SFHCCAPE 08:17
PROVIDERS: ATTEND Physician Assistant
DX: Z00.00 Encounter for general adult medical examination without abnormal findings (principal)

== ENCOUNTER → 2021-12-10 | Outpatient (CLI) | payer OTHER ==
[~2021-12-10] MED LIST changes: +E-Z-GAS II EFFERVESCENT PACKET (SODIUM BICARB./CITRIC ACID/SIMETHICONE) As Ordered ONE; +E-Z-HD 98% w/w 340GM SUSP BTL As Ordered ONE; +E-Z-PAQUE 96% w/w SUSP 176GM BTL As Ordered ONE
== END ==
LOC: M RAD 08:42
PROVIDERS: ATTEND Surgery
DX: R10.84 Generalized abdominal pain (principal)

== ENCOUNTER → 2022-04-23 | Outpatient (REF) | payer OTHER ==
[~2022-04-23] MED LIST changes: -E-Z-GAS II EFFERVESCENT PACKET (SODIUM BICARB./CITRIC ACID/SIMETHICONE) As Ordered ONE; -E-Z-HD 98% w/w 340GM SUSP BTL As Ordered ONE; -E-Z-PAQUE 96% w/w SUSP 176GM BTL As Ordered ONE
[2022-04-23 17:01] LABS: HCG, SERUM QUALITATIVE POSITIVE (NEGATIVE)
[2022-04-23 17:23] LABS: HCG, SERUM QUANTITATIVE 56099 MIU/ML
== END ==
LOC: M SFHCCAPE 10:36
PROVIDERS: ATTEND Physician Assistant
DX: N91.2 Amenorrhea, unspecified (principal)

== ENCOUNTER → 2022-05-13 | Outpatient (CLI) | payer OTHER ==
[2022-05-13 19:09] LABS: HEMATOCRIT 39.3 % (36.0-47.0); HEMOGLOBIN 12.9 g/dl (12.0-15.5); MEAN CORPUSCULAR HEMOGLOBIN 29.3 pg (27.0-33.0); MEAN CORPUSCULAR HGB CONC 32.8 g/dl (32.0-36.5); MEAN CORPUSCULAR VOLUME 89.1 fl (80.0-96.0); PLATELET COUNT, AUTOMATED 340 10^3/uL (150-450); RED BLOOD COUNT 4.41 10^6/uL (4.00-5.40); WHITE BLOOD COUNT 13.4 10^3/uL (4.0-10.0)
[2022-05-13 20:09] LABS: HEPATITIS C VIRUS ABY INDEX < 0.0 INDEX (<0.8); HIV 1&2 SCREEN CENTAUR NEGATIVE (NEGATIVE)
[2022-05-13 20:35] LABS: GC DNA AMPLIFICATION NEGATIVE (NEGATIVE)
== END ==
LOC: M PLALAB 15:00
PROVIDERS: ATTEND Specialist
DX: Z34.81 Encounter for supervision of other normal pregnancy, first trimester (principal)

== ENCOUNTER → 2022-06-22 | Outpatient (REF) | payer OTHER | LOC: M LAB REF 21:51 | PROVIDERS: ATTEND Physician Assistant Medical | DX: R50.9 Fever, unspecified (principal) ==

== ENCOUNTER → 2022-06-24 | Outpatient (REF) | payer OTHER | LOC: M SFHCCLAY 14:12 | PROVIDERS: ATTEND Physician Assistant | DX: J02.9 Acute pharyngitis, unspecified (principal) ==

== ENCOUNTER → 2022-07-21 | Outpatient (CLI) | payer OTHER | LOC: M WHC 14:27 | PROVIDERS: ATTEND Obstetrics & Gynecology | DX: Z36.2 Encounter for other antenatal screening follow-up (principal); Z3A.19 19 weeks gestation of pregnancy ==

== ENCOUNTER → 2022-08-10 | Outpatient (CLI) | payer OTHER | LOC: M WHC 10:39 | PROVIDERS: ATTEND Obstetrics & Gynecology | DX: Z36.89 Encounter for other specified antenatal screening (principal); O36.5920 Maternal care for other known or suspected poor fetal growth, second trimester, not applicable or unspecified; Z3A.23 23 weeks gestation of pregnancy ==

== ENCOUNTER → 2022-08-17 | Outpatient (CLI) | payer OTHER ==
[2022-08-17 16:01] LABS: HEMATOCRIT 37.6 % (36.0-47.0); HEMOGLOBIN 11.6 g/dl (12.0-15.5); MEAN CORPUSCULAR HEMOGLOBIN 28.9 pg (27.0-33.0); MEAN CORPUSCULAR HGB CONC 30.9 g/dl (32.0-36.5); MEAN CORPUSCULAR VOLUME 93.5 fl (80.0-96.0); PLATELET COUNT, AUTOMATED 307 10^3/uL (150-450); RED BLOOD COUNT 4.02 10^6/uL (4.00-5.40); WHITE BLOOD COUNT 14.7 10^3/uL (4.0-10.0)
== END ==
LOC: M PLALAB 11:14
PROVIDERS: ATTEND Specialist
DX: Z34.82 Encounter for supervision of other normal pregnancy, second trimester (principal); Z3A.00 Weeks of gestation of pregnancy not specified

== ENCOUNTER → 2022-08-27 | Outpatient (CLI) | payer OTHER | LOC: M WHC 14:35 | PROVIDERS: ATTEND Obstetrics & Gynecology | DX: O36.5990 Maternal care for other known or suspected poor fetal growth, unspecified trimester, not applicable or unspecified (principal); Z3A.26 26 weeks gestation of pregnancy ==

== ENCOUNTER → 2022-09-17 | Outpatient (CLI) | payer OTHER | LOC: M WHC 14:59 | PROVIDERS: ATTEND Specialist | DX: O09.299 Supervision of pregnancy with other poor reproductive or obstetric history, unspecified trimester (principal) ==

== ENCOUNTER → 2022-09-25 | Outpatient (CLI) | payer OTHER | LOC: M WHC 09:34 | PROVIDERS: ATTEND Specialist | DX: O36.5990 Maternal care for other known or suspected poor fetal growth, unspecified trimester, not applicable or unspecified (principal) ==

== ENCOUNTER → 2022-10-01 | Outpatient (CLI) | payer OTHER | LOC: M WHC 12:37 | PROVIDERS: ATTEND Specialist | DX: O36.5990 Maternal care for other known or suspected poor fetal growth, unspecified trimester, not applicable or unspecified (principal) ==

== ENCOUNTER → 2022-10-09 | Outpatient (CLI) | payer OTHER | LOC: M WHC 10:55 | PROVIDERS: ATTEND Specialist | DX: O36.5993 Maternal care for other known or suspected poor fetal growth, unspecified trimester, fetus 3 (principal); Z3A.32 32 weeks gestation of pregnancy ==

== ENCOUNTER → 2022-10-16 | Outpatient (CLI) | payer OTHER | LOC: M WHC 12:39 | PROVIDERS: ATTEND Specialist | DX: O36.5990 Maternal care for other known or suspected poor fetal growth, unspecified trimester, not applicable or unspecified (principal) ==

== ENCOUNTER → 2022-10-23 | Outpatient (CLI) | payer OTHER | LOC: M WHC 12:41 | PROVIDERS: ATTEND Specialist | DX: O36.5990 Maternal care for other known or suspected poor fetal growth, unspecified trimester, not applicable or unspecified (principal); Z3A.34 34 weeks gestation of pregnancy ==

== ENCOUNTER → 2022-10-30 | Outpatient (CLI) | payer OTHER | LOC: M WHC 12:39 | PROVIDERS: ATTEND Specialist | DX: O36.5990 Maternal care for other known or suspected poor fetal growth, unspecified trimester, not applicable or unspecified (principal); Z3A.35 35 weeks gestation of pregnancy ==

== ENCOUNTER → 2022-11-03 | Outpatient (REF) | payer OTHER ==
[~2022-11-03] MED LIST changes: +COLA100C5 PO
== END ==
LOC: M PLALAB 16:03
PROVIDERS: ATTEND Obstetrics & Gynecology
DX: Z36.85 Encounter for antenatal screening for Streptococcus B (principal); Z3A.36 36 weeks gestation of pregnancy

== ENCOUNTER → 2022-11-06 | Outpatient (CLI) | payer OTHER | LOC: M WHC 12:50 | PROVIDERS: ATTEND Specialist | DX: O36.5990 Maternal care for other known or suspected poor fetal growth, unspecified trimester, not applicable or unspecified (principal); Z3A.36 36 weeks gestation of pregnancy ==

== ENCOUNTER → 2022-11-13 | Outpatient (CLI) | payer OTHER ==
[~2022-11-13] MED LIST changes: +TUMS500C PO
== END ==
LOC: M WHC 13:01
PROVIDERS: ATTEND Specialist
DX: O36.5930 Maternal care for other known or suspected poor fetal growth, third trimester, not applicable or unspecified (principal); Z3A.37 37 weeks gestation of pregnancy

== ENCOUNTER → 2024-04-28 | Outpatient (CLI) | payer OTHER | LOC: M PLALAB 15:10 | PROVIDERS: ATTEND Specialist | DX: N91.2 Amenorrhea, unspecified (principal) ==

== ENCOUNTER → 2024-05-01 | Outpatient (CLI) | payer OTHER | LOC: M PLALAB 13:18 | PROVIDERS: ATTEND Specialist | DX: N91.2 Amenorrhea, unspecified (principal) ==

== ENCOUNTER → 2024-06-13 | Outpatient (CLI) | payer OTHER ==
[2024-06-13 10:38] LABS: HEMATOCRIT 41.6 % (36.0-47.0); HEMOGLOBIN 14.1 g/dl (12.0-15.5); MEAN CORPUSCULAR HEMOGLOBIN 30.1 pg (27.0-33.0); MEAN CORPUSCULAR HGB CONC 33.9 g/dl (32.0-36.5); MEAN CORPUSCULAR VOLUME 88.7 fl (80.0-96.0); PLATELET COUNT, AUTOMATED 325 10^3/uL (150-450); RED BLOOD COUNT 4.69 10^6/uL (4.00-5.40)
[2024-06-13 11:38] LABS: HIV 1&2 SCREEN NEGATIVE (NEGATIVE)
[2024-06-13 11:44] LABS: HEPATITIS C VIRUS ABY INDEX 0.02 INDEX (<0.8)
[2024-06-13 12:34] LABS: GC DNA AMPLIFICATION NEGATIVE (NEGATIVE)
== END ==
LOC: M PLALAB 08:59
PROVIDERS: ATTEND Specialist
DX: Z34.81 Encounter for supervision of other normal pregnancy, first trimester (principal); Z3A.00 Weeks of gestation of pregnancy not specified

== ENCOUNTER → 2024-06-20 | Outpatient (REF) | payer OTHER | LOC: M SFHCWAGY 12:39 | PROVIDERS: ATTEND Specialist | DX: R82.90 Unspecified abnormal findings in urine (principal) ==

== ENCOUNTER → 2024-08-17 | Outpatient (CLI) | payer OTHER | LOC: M WHC 13:35 | PROVIDERS: ATTEND Specialist | DX: Z34.82 Encounter for supervision of other normal pregnancy, second trimester (principal); Z3A.19 19 weeks gestation of pregnancy ==

== ENCOUNTER → 2024-10-03 | Outpatient (CLI) | payer OTHER ==
[2024-10-03 14:23] LABS: HEMATOCRIT 36.8 % (36.0-47.0); MEAN CORPUSCULAR HEMOGLOBIN 29.6 pg (27.0-33.0); MEAN CORPUSCULAR HGB CONC 32.6 g/dl (32.0-36.5); MEAN CORPUSCULAR VOLUME 90.9 fl (80.0-96.0); PLATELET COUNT, AUTOMATED 320 10^3/uL (150-450); RED BLOOD COUNT 4.05 10^6/uL (4.00-5.40); WHITE BLOOD COUNT 13.8 10^3/uL (4.0-10.0)
[2024-10-03 14:38] LABS: GLUCOSE CHALLENGE TEST 1 HOUR 59 MG/DL (LESS THAN 140)
[2024-10-03 15:13] LABS: HIV 1&2 SCREEN NEGATIVE (NEGATIVE)
[2024-10-03 15:21] LABS: HEPATITIS C VIRUS ABY INDEX 0.08 INDEX (<0.8)
[2024-10-03 18:08] LABS: GC DNA AMPLIFICATION NEGATIVE (NEGATIVE)
[2024-10-06 12:44] LABS: Trichomonas vaginalis (AMP) NOT DETECTED (NEGATIVE)
== END ==
LOC: M PLALAB 09:42
PROVIDERS: ATTEND Specialist
DX: Z33.1 Pregnant state, incidental (principal)

== ENCOUNTER → 2024-11-03 | Outpatient (CLI) | payer OTHER | LOC: M WHC 08:34 | PROVIDERS: ATTEND Obstetrics & Gynecology | DX: Z87.59 Personal history of other complications of pregnancy, childbirth and the puerperium (principal) ==

== ENCOUNTER → 2024-11-14 | Outpatient (CLI) | payer OTHER ==
[2024-11-14 13:07] LABS: HEMATOCRIT 39.5 % (36.0-47.0); HEMOGLOBIN 12.8 g/dl (12.0-15.5); MEAN CORPUSCULAR HEMOGLOBIN 28.7 pg (27.0-33.0); MEAN CORPUSCULAR HGB CONC 32.4 g/dl (32.0-36.5); MEAN CORPUSCULAR VOLUME 88.6 fl (80.0-96.0); PLATELET COUNT, AUTOMATED 353 10^3/uL (150-450); RED BLOOD COUNT 4.46 10^6/uL (4.00-5.40); WHITE BLOOD COUNT 13.7 10^3/uL (4.0-10.0)
[2024-11-14 13:42] LABS: URIC ACID 4.1 MG/DL (3.1-7.8)
[2024-11-14 13:44] LABS: CREATININE,RANDOM URINE 29.9 MG/DL; LDH LACTATE DEHYDROGENASE 147 U/L (120-246); TOTAL PROTEIN,RANDOM URINE < 6.0 MG/DL (0.0-14.0)
[2024-11-14 13:45] LABS: ALT/SGPT 16 U/L (7.0-40); AST/SGOT 16 U/L (<34); BILIRUBIN,TOTAL 0.3 MG/DL (0.3-1.2); CREATININE FOR GFR 0.61 MG/DL (0.55-1.30); GLOMERULAR FILTRATION RATE > 90.0 (>60)
== END ==
LOC: M PLALAB 10:10
PROVIDERS: ATTEND Specialist
DX: Z34.83 Encounter for supervision of other normal pregnancy, third trimester (principal); Z3A.00 Weeks of gestation of pregnancy not specified

== ENCOUNTER → 2024-11-28 | Outpatient (CLI) | payer OTHER ==
[2024-11-28 14:12] LABS: HEMATOCRIT 37.6 % (36.0-47.0); HEMOGLOBIN 12.1 g/dl (12.0-15.5); MEAN CORPUSCULAR HEMOGLOBIN 28.3 pg (27.0-33.0); MEAN CORPUSCULAR HGB CONC 32.2 g/dl (32.0-36.5); MEAN CORPUSCULAR VOLUME 87.9 fl (80.0-96.0); PLATELET COUNT, AUTOMATED 321 10^3/uL (150-450); RED BLOOD COUNT 4.28 10^6/uL (4.00-5.40); WHITE BLOOD COUNT 15.2 10^3/uL (4.0-10.0)
[2024-11-28 14:32] LABS: URIC ACID 3.9 MG/DL (3.1-7.8)
[2024-11-28 14:33] LABS: CREATININE,RANDOM URINE 21.6 MG/DL; TOTAL PROTEIN,RANDOM URINE < 6.0 MG/DL (0.0-14.0)
[2024-11-28 14:34] LABS: LDH LACTATE DEHYDROGENASE 148 U/L (120-246)
[2024-11-28 14:35] LABS: ALT/SGPT 15 U/L (7.0-40); AST/SGOT 14 U/L (<34); BILIRUBIN,TOTAL 0.3 MG/DL (0.3-1.2); CREATININE FOR GFR 0.61 MG/DL (0.55-1.30); GLOMERULAR FILTRATION RATE > 90.0 (>60)
== END ==
LOC: M PLALAB 10:15
PROVIDERS: ATTEND Obstetrics & Gynecology
DX: O13.3 Gestational [pregnancy-induced] hypertension without significant proteinuria, third trimester (principal)

== ENCOUNTER → 2024-11-29 | Outpatient (CLI) | payer OTHER | LOC: M WHC 07:40 | PROVIDERS: ATTEND Obstetrics & Gynecology | DX: O13.3 Gestational [pregnancy-induced] hypertension without significant proteinuria, third trimester (principal); Z3A.34 34 weeks gestation of pregnancy ==

== ENCOUNTER → 2024-12-05 | Outpatient (REF) | payer OTHER ==
[~2024-12-05] MED LIST changes: +LABE100T40 PO
== END ==
LOC: M SFHCWAGY 15:17
PROVIDERS: ATTEND Specialist
DX: Z36.89 Encounter for other specified antenatal screening (principal); Z3A.35 35 weeks gestation of pregnancy

== ENCOUNTER → 2025-05-02 | Outpatient (REF) | payer OTHER ==
[~2025-05-02] MED LIST changes: +PRENCHW PO
[2025-05-02 18:01] LABS: BASO # 0.1 10^3/uL (0.0-0.2); BASO % 0.7 % (0.0-1.0); EOS # 0.2 10^3/uL (0.0-0.5); EOS % 2.0 % (0.0-3.0); LYMPH # 2.4 10^3/uL (1.5-5.0); LYMPH % 24.4 % (24.0-44.0); MONO # 0.7 10^3/uL (0.0-0.8); MONO % 6.9 % (2.0-8.0); NEUTROPHILS # 6.4 10^3/uL (1.5-8.5); NEUTROPHILS % 65.8 % (36.0-66.0); PLATELET COUNT, AUTOMATED 327 10^3/uL (150-450)
[2025-05-02 18:26] LABS: URINE PREG TEST NEGATIVE (NEGATIVE)
[2025-05-02 18:30] LABS: APPEARANCE, URINE HAZY (CLEAR); BACTERIA, URINE AUTO NEGATIVE (NEGATIVE); BILIRUBIN, URINE AUTO NEGATIVE (NEGATIVE); BLOOD, URINE BLOOD 1+ (NEGATIVE); GLUCOSE, URINE (UA) AUTO NEGATIVE (NEGATIVE); KETONE, URINE AUTO NEGATIVE (NEGATIVE); LEUKOCYTE ESTERASE, URINE AUTO NEGATIVE (NEGATIVE); MUCUS, URINE SMALL (NEGATIVE); NITRITE, URINE AUTO NEGATIVE (NEGATIVE); PROTEIN, URINE AUTO NEGATIVE (NEGATIVE); RBC, URINE AUTO 4 /HPF (0-3); SPECIFIC GRAVITY URINE AUTO 1.023 (1.002-1.035); SQUAMOUS EPITHELIAL CELL UR AU 3 /HPF (0-6); UROBILINOGEN, URINE AUTO 0.2 mg/dL (0.0-2.0); WBC, URINE AUTO 1 /HPF (0-3)
[2025-05-02 18:33] LABS: ALT/SGPT 16 U/L (7.0-40); AST/SGOT 17 U/L (<34); CALCIUM LEVEL 9.3 MG/DL (8.5-10.1); CARBON DIOXIDE LEVEL 28 MMOL/L (20-31); CHLORIDE LEVEL 104 MMOL/L (98-107); CREATININE FOR GFR 0.69 MG/DL (0.55-1.30); GLOMERULAR FILTRATION RATE > 90.0 (>60); IRON (FE) 41 UG/DL (50-170); PERCENT SATURATION 11.9 % (13.2-45.0); POTASSIUM SERUM 4.6 MMOL/L (3.5-5.1); SODIUM LEVEL 142 MMOL/L (136-145)
[2025-05-02 18:34] LABS: TOTAL 25(OH) VITAMIN D 38.6 NG/ML (20.0-100.0); VITAMIN B12 LEVEL 1225 PG/ML (211-911)
[2025-05-02 18:35] LABS: FREE T4 1.16 NG/DL (0.89-1.76)
== END ==
LOC: M SFHCCAPE 13:59
PROVIDERS: ATTEND Physician Assistant Medical
DX: R53.83 Other fatigue (principal); R40.0 Somnolence